=== PATIENT | female | born 1970 ===

== ENCOUNTER 2016-08-06 00:06 | Emergency (ER) | payer MEDICAID ==
[2016-08-06] MEDS ORDERED: Iohexol 240 (50 ml) PO ONE (00:55)
[2016-08-06] MEDS ORDERED: Iohexol 240 (50 ml) ONE (01:08)
--- NOTE | 2016-08-06 01:13 | ED PDOC ---
HPI: Abdomen Time Seen by Provider: 08/06/16 00:15 Chief Complaint (Nursing): Abdominal Pain Chief Complaint (Provider): abd pain History Per: Patient History/Exam Limitations: no limitations Onset/Duration Of Symptoms: Hrs Outside of [place] travel?: No Current Symptoms Are (Timing): Still Present Additional Complaint(s): 46yo female with PMHx including diabetes, colon resection with ileostomy and reversal, SBO presents to the ED with c/o abdominal pain since 1800 last night with vomiting x1. Denies diarrhea, fever. Patient reports she was able to pas gas, but has not had a BM. Of note, patient had a small bowel obstruction 2 months ago and was seen by Dr. Calderon at that time with conservative management. Past Medical History Reviewed: Historical Data, Nursing Documentation, Vital Signs Vital Signs: Last Vital Signs Temp 97.9 F 08/06/16 04:38 Pulse 75 08/06/16 04:38 Resp 16 08/06/16 04:38 BP 125/80 08/06/16 04:38 Pulse Ox 100 08/06/16 06:33 - Medical History PMH: Diabetes, Hypercholesterolemia, Kidney Stones Denies: Alzheimer's Disease, Chronic Kidney Disease - Surgical History Surgical History: Cholecystectomy Other surgeries: breast, for kidney stone, ileostomy and reversal, ovarian - Family History Family History: States: No Known Family Hx - Social History Current smoker - smoking cessation education provided: No Alcohol: None Drugs: Denies - Home Medications Home Medications: Ambulatory Orders Medication Instructions Recorded Simvastatin 10 mg PO DAILY 06/08/16 metFORMIN [glucOPHAGE] 500 mg PO DAILY 06/08/16 Ciprofloxacin [Cipro] 500 mg PO BID #8 tab 06/10/16 - Allergies Allergies/Adverse Reactions: Allergies Allergy/AdvReac Type Severity Reaction Status Date / Time No Known Allergies Allergy Verified 06/07/16 22:42 Review of Systems ROS Statement: Except As Marked, All Systems Reviewed And Found Negative Constitutional: Negative for: Fever Gastrointestinal: Positive for: Vomiting, Abdominal Pain. Negative for: Diarrhea Physical Exam - Reviewed Nursing Documentation Reviewed: Yes Vital Signs Reviewed: Yes - Physical Exam Appears: Positive for: Well, No Acute Distress Head Exam: Positive for: ATRAUMATIC, NORMAL INSPECTION, NORMOCEPHALIC Skin: Positive for: Normal Color, Warm, Dry Eye Exam: Positive for: Normal appearance, EOMI, PERRL ENT: Positive for: Normal ENT Inspection Neck: Positive for: Normal, Painless ROM, Supple Cardiovascular/Chest: Positive for: Regular Rate, Rhythm. Negative for: Murmur , Tachycardia Respiratory: Positive for: Normal Breath Sounds. Negative for: Wheezing, Respiratory Distress Gastrointestinal/Abdominal: Positive for: Bowel Sounds, Soft, Tenderness ( diffuse ) Back: Positive for: Normal Inspection. Negative for: L CVA Tenderness, R CVA Tenderness Extremity: Positive for: Normal ROM. Negative for: Deformity, Swelling Neurologic/Psych: Positive for: Alert, Oriented. Negative for: Motor/Sensory Deficits - Laboratory Results Result Diagrams: 08/06/16 01:05 08/06/16 01:05 - ECG O2 Sat by Pulse Oximetry: 100 Pulse Ox Interpretation: Normal (RA) Medical Decision Making Medical Decision Makin: Impression: abdominal pain, r/o SBO Plan: CT A/P Labs IVF, Zofran 4mg IV ED obs reassess 0349: CT A/P impression: Evidence of prior bowel surgery. Constipation. Distended small bowel loops in the upper pelvis with prominent folds suggestive of focal enteritis. No obstruction identified. Stable appearing mild hydronephrosis. 0430: Patient tolerating PO and stable for d/c. pt feels better. pt instructed to drink plenty of fluids Instructed to f/u w/ her PCP in 1-2 days and return to ED with any worsening or concerning symptoms. Scribe Attestation: Documented by Tammy Mehta acting as a scribe for Calvin Reynolds MD. Provider Scribe Attestation: All medical record entries made by the Scribe were at my direction and personally dictated by me. I have reviewed the chart and agree that the record accurately reflects my personal performance of the history, physical exam, medical decision making, and the department course for this patient. I have also personally directed, reviewed, and agree with the discharge instructions and disposition. ED OBSERVATION Date of observation admission: 08/06/16 Time of observation admission: 01:18 - Observation admission statement Patient is being placed in observation because:: abdominal pain - Goals of Observation Goals of observation are:: pending CT A/P Disposition - Clinical Impression Clinical Impression: Enteritis - Patient ED Disposition Is Patient to be Admitted: No Counseled Patient/Family Regarding: Studies Performed, Diagnosis, Need For Followup - Disposition Disposition: Routine/Home Disposition Time: 04:30 Condition: IMPROVED Additional Instructions: follow up with your primary doctor in 1-2 days. return to the ED with any worsening or concerning symptoms. Instructions: Enteritis (ED) Forms: [facility] ED School/Work Excuse
[2016-08-06 01:14] LABS: BASO # 0.1 K/uL (0.0-0.2); BASO % 0.7 % (0.0-2.0); EOS # 0.1 K/uL (0.0-0.7); EOS % 1.3 % (0.0-4.0); HEMATOCRIT 38.6 % (34.0-47.0); LYMPH % 11.7 % (20.0-40.0); MEAN CELL VOLUME 83.4 fl (81.0-99.0); MEAN CORPUSCULAR HEMOGLOBIN 27.5 pg (27.0-31.0); MEAN PLATELET VOLUME 7.9 fl (7.2-11.7); MONO # 0.5 K/uL (0.0-0.8); MONO % 5.6 % (0.0-10.0); NEUT # 7.2 K/uL (1.8-7.0); NEUT % 80.7 % (50.0-75.0); RED CELL DISTRIBUTION WIDTH 13.5 % (11.5-14.5)
[2016-08-06] MEDS ORDERED: Sodium Chloride 0.9% 1,000 ML IV STA (01:18)
[2016-08-06 01:20] LABS: CHLORIDE 105 mmol/L (98-107); POTASSIUM 4.3 MMOL/L (3.6-5.0); SODIUM 144 mmol/l (132-148)
[2016-08-06 01:22] LABS: GFR AFRICAN-AMERICAN > 60
[2016-08-06 01:23] LABS: ALB/GLOB RATIO 1.2 (1.0-2.1); ALKALINE PHOSPHATASE 108 U/L (38-126); ALT/SGPT 35 U/L (9-52); AST/SGOT 25 U/L (14-36); BILIRUBIN,TOTAL 0.8 mg/dl (0.2-1.3); BLOOD UREA NITROGEN 13 mg/dl (7-17); CALCIUM 9.6 mg/dL (8.4-10.2); CARBON DIOXIDE 25 mmol/L (22-30); GLUCOSE,RANDOM 143 mg/dL (65-105); LIPASE 84 U/L (23-300); TOTAL PROTEIN 8.1 G/DL (6.3-8.2)
[2016-08-06] MEDS ORDERED: Iohexol 300 100 ML IJ ONE (02:58)
[2016-08-06] MEDS ORDERED: Sodium Chloride 0.9% 50 ML IV ONE (02:58)
--- NOTE | 2016-08-06 03:49 | CT ---
EXAM: CT Abdomen and Pelvis With Intravenous Contrast CLINICAL HISTORY: 46 years old, female; Pain; Abdominal pain; Generalized; Prior surgery; Surgery date: 6+ months; Surgery type: Gall bladder removed. Hysterectomy. Colon resection with ileostomy and reversal. Sb obstruction 2 months ago; Additional info: Abd pain vomiting rule out obstruction TECHNIQUE: Axial computed tomography images of the abdomen and pelvis with intravenous contrast. This CT exam was performed using one or more of the following dose reduction techniques: automated exposure control, adjustment of the mA and/or kV according to patient size, and/or use of iterative reconstruction technique. Coronal and sagittal reformatted images were created and reviewed. CONTRAST: 95 mL of administered intravenously. EXAM DATE/TIME: 08/06/2016 12:55 AM COMPARISON: CT - ABD PELVIS PO IV CONTRAST 06/08/2016 2:33:31 AM FINDINGS: Cholecystectomy clips are present. The liver is normal. The spleen is normal. The pancreas is normal. Stable nonobstructing right renal calcifications. There is slight fullness of the renal collecting systems bilaterally slightly more prominent on the right similar to prior. No obstructing calculi are identified. No perinephric stranding to suggest acute infectious/inflammatory process. Small bowel herniates between the abdominis rectus muscles at the umbilicus similar to prior. There is slight caliber change in this region however not significant enough to be supportive of obstruction. Additionally, contrast progresses through to the colon. There is fold prominence of several small bowel loops of small bowel loops in the upper pelvis suggestive of focal enteritis. Surgical sutures at the rectosigmoid junction. Small amount of stranding surrounding the surgicalsite felt to likely be postoperative as there is no significant wall thickening. The colon is distended with stool consistent with constipation. A normal appendix is identified ser 3 images 97 - 110. IMPRESSION: Evidence of prior bowel surgery. Constipation. Distended small bowel loops in the upper pelvis with prominent folds suggestive of focal enteritis. No obstruction identified. Stable appearing mild hydronephrosis.
[2016-08-06 04:38] VITALS: BP 125/80; PULSE 75; RESP 16; TEMP 97.9
[2016-08-06 06:33] VITALS: O2SAT 100
== END 2016-08-06 04:39 | disposition home or self-care (01) ==
LOC: H.ER 00:06
DX: K52.9 Noninfective gastroenteritis and colitis, unspecified (principal); R11.10 Vomiting, unspecified; E11.9 Type 2 diabetes mellitus without complications; E78.00 Pure hypercholesterolemia, unspecified; Z79.84 Long term (current) use of oral hypoglycemic drugs; Z90.49 Acquired absence of other specified parts of digestive tract; Z90.710 Acquired absence of both cervix and uterus; K59.00 Constipation, unspecified

== ENCOUNTER 2016-09-02 03:44 | Emergency (ER) | payer MEDICAID ==
[2016-09-02 03:49] VITALS: BP 142/80; PULSE 74; RESP 16; TEMP 98.3; O2SAT 98
[2016-09-02] MEDS ORDERED: Sodium Chloride 0.9% 1,000 ML IV STA (03:59)
--- NOTE | 2016-09-02 04:28 | ED PDOC ---
HPI: Abdomen Time Seen by Provider: 09/02/16 03:50 Chief Complaint (Nursing): Abdominal Pain Chief Complaint (Provider): Abdominal pain History Per: Patient History/Exam Limitations: no limitations Onset/Duration Of Symptoms: Hrs (6) Outside of [place] travel?: No Current Symptoms Are (Timing): Still Present Severity: Moderate Location Of Pain/Discomfort: Diffuse Quality Of Discomfort: "Pain" Additional History Per: Patient Additional Complaint(s): The pt is a 46yo female, PMHx of colon mass with substotal colectomy, uterine mass resulting in hysterectomy, presents to ED for evaluation of abdominal pain. She reports she has had 2 episodes of adhesion related small bowel obstructions since her procedures. She reports similar complaints today with acute onset of nausea and vomiting x4 today, states vomits was non-bloody and non-bilious. She denies any chest pain, SOB, fever or cough. Offers no additional medical complaints. Past Medical History Reviewed: Historical Data, Nursing Documentation, Vital Signs Vital Signs: Last Vital Signs Temp 98.3 F 09/02/16 03:46 Pulse 74 09/02/16 03:46 Resp 16 09/02/16 03:46 BP 142/80 09/02/16 03:46 Pulse Ox 98 09/02/16 09:22 - Medical History PMH: Diabetes, Hypercholesterolemia, Kidney Stones Denies: Alzheimer's Disease, Chronic Kidney Disease - Surgical History Surgical History: Cholecystectomy Other surgeries: Hysterectomy, subtotal colectomy - Family History Family History: States: Unknown Family Hx - Social History Current smoker - smoking cessation education provided: No Alcohol: None Drugs: Denies - Home Medications Home Medications: Ambulatory Orders Medication Instructions Recorded Simvastatin 10 mg PO DAILY 06/08/16 metFORMIN [glucOPHAGE] 500 mg PO DAILY 06/08/16 Ciprofloxacin [Cipro] 500 mg PO BID #8 tab 06/10/16 - Allergies Allergies/Adverse Reactions: Allergies Allergy/AdvReac Type Severity Reaction Status Date / Time No Known Allergies Allergy Verified 09/02/16 03:46 Review of Systems ROS Statement: Except As Marked, All Systems Reviewed And Found Negative Constitutional: Negative for: Fever Cardiovascular: Negative for: Chest Pain Respiratory: Negative for: Cough, Shortness of Breath Gastrointestinal: Positive for: Nausea, Vomiting, Abdominal Pain Physical Exam - Reviewed Nursing Documentation Reviewed: Yes Vital Signs Reviewed: Yes - Physical Exam Appears: Positive for: Well, Non-toxic, Uncomfortable Head Exam: Positive for: ATRAUMATIC, NORMAL INSPECTION, NORMOCEPHALIC Skin: Positive for: Normal Color, Warm (tacky mucuous membranes) Eye Exam: Positive for: Normal appearance Neck: Positive for: Normal Cardiovascular/Chest: Positive for: Regular Rate, Rhythm Respiratory: Positive for: Normal Breath Sounds. Negative for: Respiratory Distress Gastrointestinal/Abdominal: Positive for: Soft, Tenderness (diffuse abdominal tenderness) Neurologic/Psych: Positive for: Alert, Oriented - Laboratory Results Result Diagrams: 09/02/16 04:15 09/02/16 04:15 - ECG O2 Sat by Pulse Oximetry: 98 (RA) Pulse Ox Interpretation: Normal Medical Decision Making Medical Decision Making: Time: 0405 Impression: 46yo female w/ abdominal pain, nausea, vomiting in setting of recurrent SBO Plan: * Labs * CT AP * Morphine * Zofran * IV Fluids * reassess Time: 0700 Pt to be signed out to Dr. Demarco pending CT results and ED disposition. Scribe Attestation: Documented by Lali Kay acting as a scribe for Billy Stoddard MD. Provider Attestation: All medical record entries made by the Scribe were at my direction and personally dictated by me. I have reviewed the chart and agree that the record accurately reflects my personal performance of the history, physical exam, medical decision making, and the department course for this patient. I have also personally directed, reviewed, and agree with the discharge instructions and disposition. Disposition - Clinical Impression Clinical Impression: Abdominal pain, Small intestine disorder - Patient ED Disposition Is Patient to be Admitted: Transfer of Care - Disposition Disposition: Transfer of Care Disposition Time: 07:00 Condition: IMPROVED Instructions: Bowel Obstruction (ED) Forms: [facility] ED School/Work Excuse Print Language: CONGOLESE Patient Signed Over To: Angelica Demarco (pending ct ap results)
[2016-09-02 04:36] LABS: BASO % 0.2 % (0.0-2.0); EOS % 0.3 % (0.0-4.0); HEMATOCRIT 39.5 % (34.0-47.0); LYMPH # 0.9 K/uL (1.0-4.3); LYMPH % 10.8 % (20.0-40.0); MEAN CELL VOLUME 82.4 fl (81.0-99.0); MEAN CORPUSCULAR HEMOGLOBIN 27.8 pg (27.0-31.0); MEAN CORPUSCULAR HGB CONC 33.7 g/dL (33.0-37.0); MEAN PLATELET VOLUME 8.1 fl (7.2-11.7); MONO # 0.3 K/uL (0.0-0.8); MONO % 3.4 % (0.0-10.0); NEUT # 6.9 K/uL (1.8-7.0); NEUT % 85.3 % (50.0-75.0); RED CELL DISTRIBUTION WIDTH 13.6 % (11.5-14.5); WHITE BLOOD COUNT 8.1 K/uL (4.8-10.8)
[2016-09-02 04:48] LABS: ALB/GLOB RATIO 1.3 (1.0-2.1); ALKALINE PHOSPHATASE 117 U/L (38-126); ALT/SGPT 25 U/L (9-52); AST/SGOT 24 U/L (14-36); BILIRUBIN,TOTAL 0.9 mg/dl (0.2-1.3); BLOOD UREA NITROGEN 15 mg/dl (7-17); CALCIUM 9.8 mg/dL (8.4-10.2); CARBON DIOXIDE 26 mmol/L (22-30); CHLORIDE 104 mmol/L (98-107); GFR AFRICAN-AMERICAN > 60; GLUCOSE,RANDOM 181 mg/dL (65-105); LIPASE 104 U/L (23-300); POTASSIUM 4.6 MMOL/L (3.6-5.0); SODIUM 143 mmol/l (132-148); TOTAL PROTEIN 9.1 G/DL (6.3-8.2)
[2016-09-02 04:59] LABS: PARTIAL THROMBOPLASTIN TIME 22.2 SECONDS (23.3-32.5)
[2016-09-02 05:51] LABS: RBC URINE 5 /hpf (0-3); URINE BILIRUBIN NEGATIVE (NEGATIVE); URINE BLOOD NEGATIVE (NEGATIVE); URINE COLOR YELLOW (YELLOW); URINE GLUCOSE (UA) NEG (Normal); URINE KETONE NEGATIVE (NEGATIVE); URINE LEUKOCYTE ESTERASE TRACE Leu/uL (Negative); URINE PROTEIN NEGATIVE (NEGATIVE); URINE UROBILINOGEN 0.2-1.0 mg/dL (0.2-1.0); WBC URINE 5 /hpf (0-5)
[2016-09-02] MEDS ORDERED: Iohexol 300 100 ML IJ ONE (05:51)
[2016-09-02] MEDS ORDERED: Sodium Chloride 0.9% 50 ML IV ONE (05:52)
[2016-09-02 06:04] LABS: URINE BACTERIA SMALL (<OCC)
--- NOTE | 2016-09-02 07:08 | ED PDOC ---
- Laboratory Results Result Diagrams: 09/02/16 04:15 09/02/16 04:15 - ECG O2 Sat by Pulse Oximetry: 98 (RA) Medical Decision Making Medical Decision Making: received patient form Dr. Stoddard. Patient pending CT abd pelvis for evaluation of abd pain. h/o resection and recurrent SBO. per report feeling better and passing gas after some meds in the ED 9.00 CT reviewed. Patient examined. She feels better now. Passed gas below twice since arrival. CT - possible early SBO. Patient prefers to go home and return if symptoms worsen. Disposition Doctor Will See Patient In The: Office Counseled Patient/Family Regarding: Diagnosis, Need For Followup - Clinical Impression Clinical Impression: Abdominal pain, Small intestine disorder - POA Present On Arrival: None - Disposition Disposition: Routine/Home Disposition Time: 09:00 Condition: IMPROVED Instructions: Bowel Obstruction (ED) Print Language: SERBIAN
--- NOTE | 2016-09-02 11:23 | CT ---
PROCEDURE: CT Abdomen and Pelvis with contrast HISTORY: possible SBO COMPARISON: CT abdomen and pelvis with contrast performed 08/06/16 TECHNIQUE: Radiation dose: Total exam DLP = 908.80 mGy-cm. This CT exam was performed using one or more of the following dose reduction techniques: Automated exposure control, adjustment of the mA and/or kV according to patient size, and/or use of iterative reconstruction technique. FINDINGS: LOWER THORAX: No visible consolidation, pleural effusion, or pneumothorax. Small hiatal hernia. LIVER: Hypoattenuation of the liver compatible with hepatic steatosis. GALLBLADDER AND BILE DUCTS: Cholecystectomy. PANCREAS: Unremarkable. SPLEEN: 5 mm probable splenule. Otherwise unremarkable. ADRENALS: Unremarkable. KIDNEYS AND URETERS: The kidneys enhance symmetrically. Nonobstructing calculus, right lower pole. Mild right-sided hydronephrosis re-identified, stable to slightly decreased in extent. The left kidney without hydronephrosis or obstructing calculus. VASCULATURE: No aortic aneurysm. BOWEL: Stomach is nondistended. Lack of oral contrast limits evaluation for bowel pathology. Prior colon resections. Moderate constipation. Bowel loops entering in abdominal midline hernia. Evidence of developing small bowel air-fluid levels and appearance which suggests obstruction. APPENDIX: The appendix appears within normal limits of caliber. No secondary signs of acute appendicitis. PERITONEUM: No significant free fluid. No definite free air. LYMPH NODES: No bulky adenopathy. BLADDER: Unremarkable. REPRODUCTIVE: The uterus is absent compatible with hysterectomy. BONES: Degenerative changes of the spine. Partially fused L3-L4 vertebral bodies. No acute displaced fracture identified. OTHER FINDINGS: None. IMPRESSION: Evidence of developing small bowel air-fluid levels and appearance which suggests obstruction. Correlate clinically. Prior colon resections. Moderate constipation. Right-sided hydronephrosis stable to minimally decreased. Cholecystectomy. Hysterectomy. Additional findings as above. Preliminary impression was provided by virtual radiologic.
--- NOTE | 2016-09-03 01:20 | CARD ---
APPROVED REPORT EKG Measurement Heart [id number] <Conclusion> Normal sinus rhythm Nonspecific T wave abnormality Abnormal ECG
== END 2016-09-02 09:50 | disposition home or self-care (01) ==
LOC: H.ER 03:44
DX: K56.60 Unspecified intestinal obstruction (principal); R11.2 Nausea with vomiting, unspecified; E11.9 Type 2 diabetes mellitus without complications; E78.00 Pure hypercholesterolemia, unspecified; K59.00 Constipation, unspecified; Z79.84 Long term (current) use of oral hypoglycemic drugs; Z90.49 Acquired absence of other specified parts of digestive tract; Z90.710 Acquired absence of both cervix and uterus

== ENCOUNTER 2016-11-24 00:02 | Inpatient (IN) | payer MEDICAID ==
[2016-11-24] MEDS ORDERED: Sodium Chloride 0.9% 1,000 ML IV STA (00:41)
[2016-11-24] MEDS ORDERED: DiphenhydrAMINE 50 mg/ml Inj IV STA (00:50)
[2016-11-24] MEDS ORDERED: Promethazine 25 MG in Sodium Chloride 0.9% 50 ML IVPB STA (00:53)
[2016-11-24 00:56] LABS: BASO % 0.2 % (0.0-2.0); EOS % 0.1 % (0.0-4.0); HEMOGLOBIN 12.2 g/dL (12.0-16.0); LYMPH # 1.3 K/uL (1.0-4.3); LYMPH % 11.8 % (20.0-40.0); MEAN CELL VOLUME 83.1 fl (81.0-99.0); MEAN CORPUSCULAR HEMOGLOBIN 27.2 pg (27.0-31.0); MEAN CORPUSCULAR HGB CONC 32.8 g/dL (33.0-37.0); MEAN PLATELET VOLUME 7.8 fl (7.2-11.7); MONO # 0.2 K/uL (0.0-0.8); MONO % 2.1 % (0.0-10.0); NEUT # 9.5 K/uL (1.8-7.0); NEUT % 85.8 % (50.0-75.0); RBC 4.5 Mil/uL (3.80-5.20); RED CELL DISTRIBUTION WIDTH 13.5 % (11.5-14.5); WHITE BLOOD COUNT 11.1 K/uL (4.8-10.8)
[2016-11-24] MEDS ORDERED: DiphenhydrAMINE 50 mg/ml Inj ONE (00:57)
[2016-11-24 01:07] LABS: ALB/GLOB RATIO 1.3 (1.0-2.1); ALBUMIN 4.7 g/dL (3.5-5.0); ALT/SGPT 30 U/L (9-52); AST/SGOT 31 U/L (14-36); BLOOD UREA NITROGEN 14 mg/dl (7-17); CALCIUM 9.9 mg/dL (8.4-10.2); GFR AFRICAN-AMERICAN > 60; GFR NON-AFRICAN AMERICAN > 60; LIPASE 87 U/L (23-300)
[2016-11-24] MEDS ORDERED: Sodium Chloride 0.9% 50 ML IV ONE (01:33)
[2016-11-24] MEDS ORDERED: Iohexol 300 100 ML IJ ONE (01:33)
--- NOTE | 2016-11-24 02:04 | ED PDOC ---
HPI: Abdomen Time Seen by Provider: 11/24/16 00:16 Chief Complaint (Nursing): Abdominal Pain Chief Complaint (Provider): Abdominal Pain History Per: Patient History/Exam Limitations: no limitations Onset/Duration Of Symptoms: Hrs (x4) Current Symptoms Are (Timing): Still Present Additional Complaint(s): Tara Dubon is a 46 year old female with previous medical history of diabetes , kidney stones, uterine mass and small bowel obstruction who presents to the emergency department with a complaint of abdominal pain associated with nausea and nonbloody, nonbilious vomiting ongoing for 4 hours. Denied any chest pain, cough, or shortness of breath. Of note, patient has surgical history of a subtotal colectomy and hysterectomy which has exasperated her SBO pain. PMD: none provided Past Medical History Reviewed: Historical Data, Nursing Documentation, Vital Signs Vital Signs: Last Vital Signs Temp 98.6 F 11/24/16 00:30 Pulse Resp 18 11/24/16 00:30 BP 146/84 11/24/16 00:30 Pulse Ox 99 11/24/16 04:35 - Medical History PMH: Diabetes, Hypercholesterolemia, Kidney Stones Denies: Alzheimer's Disease, Chronic Kidney Disease - Surgical History Surgical History: Cholecystectomy - Family History Family History: States: Unknown Family Hx - Social History Current smoker - smoking cessation education provided: No Alcohol: None Drugs: Denies - Home Medications Home Medications: Ambulatory Orders Medication Instructions Recorded No Known Home Med 11/24/16 - Allergies Allergies/Adverse Reactions: Allergies Allergy/AdvReac Type Severity Reaction Status Date / Time No Known Allergies Allergy Verified 09/02/16 03:46 Review of Systems ROS Statement: Except As Marked, All Systems Reviewed And Found Negative Cardiovascular: Negative for: Chest Pain Respiratory: Negative for: Cough, Shortness of Breath Gastrointestinal: Positive for: Nausea, Vomiting, Abdominal Pain Physical Exam - Reviewed Nursing Documentation Reviewed: Yes Vital Signs Reviewed: Yes - Physical Exam Appears: Positive for: Well, Non-toxic, Uncomfortable Head Exam: Positive for: ATRAUMATIC, NORMAL INSPECTION, NORMOCEPHALIC Skin: Positive for: Normal Color Cardiovascular/Chest: Positive for: Regular Rate, Rhythm Respiratory: Positive for: Normal Breath Sounds Gastrointestinal/Abdominal: Positive for: Tenderness (diffused abdomen). Negative for: Normal Exam Extremity: Positive for: Normal ROM Neurologic/Psych: Positive for: Alert, receiving barn custodian II-XII, Oriented - Laboratory Results Result Diagrams: 11/24/16 00:54 11/24/16 00:54 - ECG O2 Sat by Pulse Oximetry: 99 (RA) Pulse Ox Interpretation: Normal Medical Decision Making Medical Decision Making: Initial Impression: Abdominal pain; Recurrent small bowel obstruction Initial Plan: * CT ABD/Pelvis with IV contrast * Urine dipstick * Urine * Benadryl 25mg IV * Pepcid 20mg IV * NS 1,000ml IV per 1,000mls/hr * Zofran 4mg IV * Phenergan 50ml IVPB * Urinialysis * Re-evaluation Time: 0400 --CT ABD/Pelvis FINDINGS: LOWER THORAX: No infiltrate seen in the lung bases. ABDOMEN: LIVER: Fatty infiltration of the liver. GALLBLADDER AND BILE DUCTS: Cholecystectomy clips. PANCREAS: No CT evidence of acute pancreatitis. SPLEEN: No acute abnormality of the spleen identified. ADRENALS: No acute abnormality of the adrenal glands identified. KIDNEYS AND URETERS: Nonobstructing stones in the lower pole of the right kidney. No evidence of hydroureteronephrosis. STOMACH AND BOWEL: Findings highly suspicious for a small bowel obstruction. There are multiple dilated ileal small bowel loops seen, and there are decompressed distal ileal small bowel loops visualized. Transition point is seen, within a small bowel loop in the right lower abdomen, images 97-112 of series 3, where there is a change in caliber of the small bowel. The transition point is located near a surgical anastomosis/surgical suture line in the small bowel. No definite mass is identified at the transition point. There is no evidence of focal enteritis of the transition point. An adhesive small bowel obstruction could have this appearance. There is a small amount of fluid in the small bowel mesentery, abutting the dilated small bowel loops. Multiple ventral hernias are seen, containing small bowel loops. These hernias have wide necks, and there does not appear to be any associated bowel obstruction. Surgical suture line is noted in the rectum. Otherwise, no significant abnormality of the bowel is identified. No evidence of large bowel obstruction. No acute abnormality of the stomach or duodenum identified. APPENDIX: Appendix is seen, and is within normal limits in appearance. PELVIS: BLADDER: No acute abnormality of the bladder identified. REPRODUCTIVE: Uterus is surgically absent. No evidence of large adnexal masses. SUBPERITONEAL SPACE: Irregular soft tissue is seen in the presacral region, most likely representing post radiation/post operative changes. ABDOMEN and PELVIS: INTRAPERITONEAL SPACE: No evidence of free intraperitoneal air or fluid. BONES/JOINTS: No acute fractures or other acute bony abnormality noted. SOFT TISSUES: No acute abnormality of the visualized soft tissues is seen. VASCULATURE: No evidence of abdominal aortic aneurysm. No evidence of periaortic hemorrhage. LYMPH NODES: No evidence of diffuse lymphadenopathy. IMPRESSION: - Findings highly suspicious for a small bowel obstruction. Please see above for a full description. - Irregular soft tissue in the presacral region, most likely representing post radiation/postoperative changes, however, recommend comparison with prior exams when available to document stability. - See above for remaining findings. Time: 426 --Consulted with Dr. Perez who accepted patient and advised her to be admitted under hospital care for diagnosis of SBO. Time: 429 --Discussed case with Dr. Grace (hospitalist). Time: 444 --Discussed case with Dr. Cheema (resident bevel face stoner and polisher). Scribe Attestation: Documented by Jessica Wisdom, acting as a scribe for Billy Stoddard MD. Provider Scribe Attestation: All medical record entries made by the Scribe were at my direction and personally dictated by me. I have reviewed the chart and agree that the record accurately reflects my personal performance of the history, physical exam, medical decision making, and the department course for this patient. I have also personally directed, reviewed, and agree with the discharge instructions and disposition. Disposition - Disposition
[2016-11-24 02:38] LABS: SQUAMOUS EPITHIAL 1 /hpf (0-5); URINE BILIRUBIN NEGATIVE (NEGATIVE); URINE BLOOD NEGATIVE (NEGATIVE); URINE CLARITY CLOUDY (Clear); URINE COLOR YELLOW (YELLOW); URINE GLUCOSE (UA) NEG (Normal); URINE LEUKOCYTE ESTERASE SMALL Leu/uL (Negative); URINE NITRATE NEGATIVE (NEGATIVE); URINE PROTEIN NEGATIVE (NEGATIVE); URINE UROBILINOGEN 0.2-1.0 mg/dL (0.2-1.0)
--- NOTE | 2016-11-24 04:01 | CT ---
EXAM: CT Abdomen and Pelvis With Intravenous Contrast CLINICAL HISTORY: 46 years old, female; Pain; Abdominal pain; Generalized; Additional info: Abd pain; HX sbo TECHNIQUE: Axial computed tomography images of the abdomen and pelvis with intravenous contrast. All CT scans at this facility use one or more dose reduction techniques, viz.: automated exposure control; ma/kV adjustment per patient size (including targeted exams where dose is matched to indication; i.e. head); or iterative reconstruction technique. Coronal and sagittal reformatted images were created and reviewed. CONTRAST: 95 mL of [id number] administered intravenously. EXAM DATE/TIME: 11/24/2016 12:50 AM COMPARISON: No relevant prior studies available. FINDINGS: LOWER THORAX: No infiltrate seen in the lung bases. ABDOMEN: LIVER: Fatty infiltration of the liver. GALLBLADDER AND BILE DUCTS: Cholecystectomy clips. PANCREAS: No CT evidence of acute pancreatitis. SPLEEN: No acute abnormality of the spleen identified. ADRENALS: No acute abnormality of the adrenal glands identified. KIDNEYS AND URETERS: Nonobstructing stones in the lower pole of the right kidney. No evidence of hydroureteronephrosis. STOMACH AND BOWEL: Findings highly suspicious for a small bowel obstruction. There are multiple dilated ileal small bowel loops seen, and there are decompressed distal ileal small bowel loops visualized. Transition point is seen, within a small bowel loop in the right lower abdomen, images 97-112 of series 3, where there is a change in caliber of the small bowel. The transition point is located near a surgical anastomosis/surgical suture line in the small bowel. No definite mass is identified at the transition point. There is no evidence of focal enteritis of the transition point. An adhesive small bowel obstruction could have this appearance. There is a small amount of fluid in the small bowel mesentery, abutting the dilated small bowel loops. Multiple ventral hernias are seen, containing small bowel loops. These hernias have wide necks, and there does not appear to be any associated bowel obstruction. Surgical suture line is noted in the rectum. Otherwise, no significant abnormality of the bowel is identified. No evidence of large bowel obstruction. No acute abnormality of the stomach or duodenum identified. APPENDIX: Appendix is seen, and is within normal limits in appearance. PELVIS: BLADDER: No acute abnormality of the bladder identified. REPRODUCTIVE: Uterus is surgically absent. No evidence of large adnexal masses. SUBPERITONEAL SPACE: Irregular soft tissue is seen in the presacral region, most likely representing post radiation/post operative changes. ABDOMEN and PELVIS: INTRAPERITONEAL SPACE: No evidence of free intraperitoneal air or fluid. BONES/JOINTS: No acute fractures or other acute bony abnormality noted. SOFT TISSUES: No acute abnormality of the visualized soft tissues is seen. VASCULATURE: No evidence of abdominal aortic aneurysm. No evidence of periaortic hemorrhage. LYMPH NODES: No evidence of diffuse lymphadenopathy. IMPRESSION: - Findings highly suspicious for a small bowel obstruction. Please see above for a full description. - Irregular soft tissue in the presacral region, most likely representing post radiation/postoperative changes, however, recommend comparison with prior exams when available to document stability. - See above for remaining findings.
[2016-11-24] MEDS ORDERED: Morphine 4 MG/ML VIAL ONE (04:12)
--- NOTE | 2016-11-24 04:40 | CP.PCM.HP ---
History of Present Illness - History of Present Illness History of Present Illness: PCP: Not on staff Chief Complaint: abdominal Pain/Vomiting HPI: 46 years old female last admitted 06/08/16 and Discharged 06/10/16 with dx of SBO, has hx of Diabetes Mellitus;Colon resection with Ileostomy 05/2015, Then reversal of Ileostomy. She comes with 4 Hours of of severe generalized abdominal pain of intensity 9/10, associated with nausea and vomitus. no fever, chills, chest pain, SOB, Palpitations, diarrhea, constipation. She has had dysuria intermittently and refers abdominal pain of variable intensity after each few months, always with spontaneous relief. PMH: DM II; HLD;Right Nephrolithioasis; SBO treated conservatively PSH: Subtotal colectomy; uterine cyst removed,Ileostomy and reversal of the ileostomy 05/2015 and reversal 05/2016 hysterectomy; SH: No illegal Drug use; no Alcohol nor Cigarets, Live with the family FH: No Known family medical hx Allergies: NKDA - Present on Admission - Present on Admission Any Indicators Present on Admission: Yes History of DVT/PE: No History of Uncontrolled Diabetes: Yes Urinary Catheter: No Decubitus Ulcer Present: No Review of Systems - Constitutional Constitutional: absent: Anorexia, Chills, Fatigue, Fever, Headache - EENT Eyes: Requires Corrective Lenses. absent: Diplopia, Floaters, Photophobia Ears: absent: Decreased Hearing, Ear Discharge, Ear Pain, Tinnitus Nose/Mouth/Throat: absent: Epistaxis, Nasal Congestion, Nasal Discharge, Sinus Pain, Sinus Pressure - Cardiovascular Cardiovascular: absent: Chest Pain, Dyspnea, Edema - Respiratory Respiratory: absent: Cough, Dyspnea, Wheezing, Stridor, Chest Congestion - Gastrointestinal Gastrointestinal: Abdominal Pain, Diarrhea, Nausea, Vomiting. absent: Constipation - Genitourinary Genitourinary: Dysuria, Nocturia. absent: Flank Pain, Hematuria, Pyuria - Musculoskeletal Musculoskeletal: absent: Arthralgias, Back Pain, Joint Swelling, Muscle Weakness , Numbness - Integumentary Integumentary: absent: Pruritus, Rash, Skin Ulcer, Sores, Striae, Swelling - Neurological Neurological: absent: Confusion, Focal Weakness, Syncope, Vertigo - Psychiatric Psychiatric: absent: Anxiety, Depression, Panic Attacks - Endocrine Endocrine: absent: Palpitations, Polydipsia, Polyphagia, Polyuria - Hematologic/Lymphatic Hematologic: absent: Easy Bleeding, Easy Bruising Past Patient History - Past Medical History & Family History Past Medical History?: Yes - Past Social History Smoking Status: Never Smoked Chewing Tobacco Use: No Cigar Use: No Alcohol: None Drugs: Denies Home Situation {Lives}: With Family - CARDIAC Hx Hypercholesterolemia: Yes - PULMONARY Hx Respiratory Disorders: No - NEUROLOGICAL Hx Alzheimer's Disease: No - HEENT Hx HEENT Problems: No - RENAL Hx Chronic Kidney Disease: Yes Hx Kidney Stones: Yes - ENDOCRINE/METABOLIC Hx Diabetes Mellitus Type 2: Yes - HEMATOLOGICAL/ONCOLOGICAL Hx Blood Disorders: No - INTEGUMENTARY Hx Dermatological Problems: No - MUSCULOSKELETAL/RHEUMATOLOGICAL Hx Musculoskeletal Disorders: No - GASTROINTESTINAL Hx Bowel Surgery: Yes - GENITOURINARY/GYNECOLOGICAL Hx Genitourinary Disorders: No - PSYCHIATRIC Hx Psychophysiologic Disorder: No Hx Substance Use: No - SURGICAL HISTORY Hx Cholecystectomy: Yes Hx Hysterectomy: Yes Hx Valve Replacement: (Iliostony colon restriction with reversal,) - ANESTHESIA Hx Anesthesia: Yes Hx Anesthesia Reactions: No Meds Allergies/Adverse Reactions: Allergies Allergy/AdvReac Type Severity Reaction Status Date / Time No Known Allergies Allergy Verified 09/02/16 03:46 Physical Exam - Constitutional Appears: No Acute Distress - Head Exam Head Exam: ATRAUMATIC, NORMAL INSPECTION, NORMOCEPHALIC - Eye Exam Eye Exam: EOMI, Normal appearance, PERRL Pupil Exam: Irregular, Miosis, NORMAL ACCOMODATION - ENT Exam ENT Exam: Mucous Membranes Moist, Normal Exam, Normal External Ear Exam, Normal Oropharynx - Neck Exam Neck exam: Positive for: Full Rom, Normal Inspection. Negative for: Lymphadenopathy, Tenderness - Respiratory Exam Respiratory Exam: absent: Clear to Auscultation Bilateral, Prolonged Expiratory Phase, Rales, Rhonchi, Wheezes - Cardiovascular Exam Cardiovascular Exam: REGULAR RHYTHM, RRR, +S1, +S2. absent: Gallop, Rubs - GI/Abdominal Exam Additional comments: Obese, Soft, no guarding nor rebound tenderness. Results - Vital Signs Recent Vital Signs: Last Vital Signs Temp 98.6 F 11/24/16 00:30 Pulse Resp 18 11/24/16 00:30 BP 146/84 11/24/16 00:30 Pulse Ox 99 11/24/16 04:35 - Labs Result Diagrams: 11/24/16 00:54 11/24/16 00:54 Labs: Laboratory Results - last 24 hr 11/24/16 11/24/16 11/24/16 00:54 00:54 02:30 WBC 11.1 H RBC 4.50 Hgb 12.2 Hct 37.4 MCV 83.1 MCH 27.2 MCHC 32.8 L RDW 13.5 Plt Count 259 MPV 7.8 Neut % (Auto) 85.8 H Lymph % (Auto) 11.8 L [place] % (Auto) 2.1 Eos % (Auto) 0.1 Baso % (Auto) 0.2 Neut # 9.5 H Lymph # 1.3 [place] # 0.2 Eos # 0.0 Baso # 0.0 Sodium 138 Potassium 4.1 Chloride 101 Carbon Dioxide 22 Anion Gap 19 BUN 14 Creatinine 0.6 L Est GFR ( Amer) > 60 Est GFR (Non-Af Amer) > 60 Random Glucose 192 H Calcium 9.9 Total Bilirubin 1.0 AST 31 ALT 30 Alkaline Phosphatase 127 H Total Protein 8.2 Albumin 4.7 Globulin 3.5 Albumin/Globulin Ratio 1.3 Lipase 87 Urine Color Yellow Urine Clarity Cloudy Urine pH 8.0 Ur Specific [place] 1.011 Urine Protein Negative Urine Glucose (UA) Neg Urine Ketones Trace Urine Blood Negative Urine Nitrate Negative Urine Bilirubin Negative Urine Urobilinogen 0.2-1.0 Ur Leukocyte Esterase Small Urine RBC (Auto) 4 H Urine Microscopic WBC 9 H Ur Squamous Epith Cells 1 Urine Yeast (Budding) Mod H - Imaging and Cardiology Abdominal x-ray Status: Report reviewed by me Additional comment: FINDINGS: LOWER THORAX: No infiltrate seen in the lung bases. ABDOMEN: LIVER: Fatty infiltration of the liver. GALLBLADDER AND BILE DUCTS: Cholecystectomy clips. PANCREAS: No CT evidence of acute pancreatitis. SPLEEN: No acute abnormality of the spleen identified. ADRENALS: No acute abnormality of the adrenal glands identified. KIDNEYS AND URETERS: Nonobstructing stones in the lower pole of the right kidney. No evidence of hydroureteronephrosis. STOMACH AND BOWEL: Findings highly suspicious for a small bowel obstruction. There are multiple dilated ileal small bowel loops seen, and there are decompressed distal ileal small bowel loops visualized. Transition point is seen, within a small bowel loop in the right lower abdomen, images 97-112 of series 3, where there is a change in caliber of the small bowel. The transition point is located near a surgical anastomosis/surgical suture line in the small bowel. No definite mass is identified at the transition point. There is no evidence of focal enteritis of the transition point. An adhesive small bowel obstruction could have this appearance. There is a small amount of fluid in the small bowel mesentery, abutting the dilated small bowel loops. Multiple ventral hernias are seen, containing small bowel loops. These hernias have wide necks, and there does not appear to be any associated bowel obstruction. Surgical suture line is noted in the rectum. Otherwise, no significant abnormality of the bowel is identified. No evidence of large bowel obstruction. No acute abnormality of the stomach or duodenum identified. APPENDIX: Appendix is seen, and is within normal limits in appearance. PELVIS: BLADDER: No acute abnormality of the bladder identified. REPRODUCTIVE: Uterus is surgically absent. No evidence of large adnexal masses. SUBPERITONEAL SPACE: Irregular soft tissue is seen in the presacral region, most likely representing post radiation/post operative changes. ABDOMEN and PELVIS: INTRAPERITONEAL SPACE: No evidence of free intraperitoneal air or fluid. BONES/JOINTS: No acute fractures or other acute bony abnormality noted. SOFT TISSUES: No acute abnormality of the visualized soft tissues is seen. VASCULATURE: No evidence of abdominal aortic aneurysm. No evidence of periaortic hemorrhage. LYMPH NODES: No evidence of diffuse lymphadenopathy. IMPRESSION: - Findings highly suspicious for a small bowel obstruction. Please see above for a full description. - Irregular soft tissue in the presacral region, most likely representing post radiation/postoperative changes, however, recommend comparison with prior exams when available to document stability. - See above for remaining findings. Assessment & Plan - Assessment and Plan (Free Text) Plan: 46 years old female last admitted 06/08/16 and Discharged 06/10/16 with dx of SBO , has hx of Diabetes Mellitus;Colon resection with Ileostomy 05/2015, Then reversal of Ileostomy. She comes with 4 Hours of of severe generalized abdominal pain of intensity 9/10, associated with nausea and vomitus. no fever, chills, chest pain, SOB, Palpitations, diarrhea, constipation. She has had dysuria intermittently and refers abdominal pain of variable intensity after each few months, always with spontaneous relief. #. SBO - consult Dr davis Surgery - NPO - Zofran - Cefazolin #. Abdominal Pain - pain management with Morphine #. DM with Hyperglycemia - Regulin Insulin sliding scale according to Accuchecl #. Leukocytosis - follow WBC #.Funguria - Fluconazole 200mg IV daily #. Stress Ulcer prophylaxis eith Pepcid #. DVT Prophylaxis with SCD #. Code Status: Full - Date & Time Date: 11/24/16 Time: 04:40
[2016-11-24] MEDS: Lactated Ringer's 1,000 ML IV SCH ×3 (05:53→21:57)
[2016-11-24] MEDS ORDERED: ceFAZolin 1 GM in Sodium Chloride 0.9% 100 ML IVPB SCH (06:15)
--- NOTE | 2016-11-24 06:21 | CP.PCM.CON ---
<Magi Solorio - Last Filed: 11/24/16 11:28> History of Present Illness - History of Present Illness History of Present Illness: Surgery 46F w/ PMHx of DM, hysterectomy w/ colon resection & ileostomy, ileostomy reversal, presents w/ generalized abdominal pain. Patient reports pain began after having dinner yesterday night. Shes states this has occurred to her three previous times(August 2016, August 2015, and November 2015) after reversal of ileostomy , and these episodes were relieved with conservative management. The abdominal pain this time around did not resolve and it was severe, associated w/ n/V. Pt had multiple bilious vomiting. Last BM was yesterday. Currently denies fever, chills, CP, SOB, diarrhea, hematemesis, hematochezia, hematuria. Labs are unremarkable. CT shows multiple SB loops and ventral hernia with non obstructed SB. Surgery is consulted to evaluate for SBO. Pt had NGT in the ED . PMH: DM II PSH: Colon resection w/ ileostomy, reversal of the ileostomy 05/2015, hysterectomy, cholecystectomy SH: Denies smoking, Denies EtOH use, Denies illicit drug use Allergies: NKDA Review of Systems - Review of Systems Review of Systems: See HPI Past Patient History - Past Medical History & Family History Past Medical History?: Yes - Past Social History Smoking Status: Never Smoked Chewing Tobacco Use: No Cigar Use: No Alcohol: None Drugs: Denies Home Situation {Lives}: With Family - CARDIAC Hx Hypercholesterolemia: Yes - PULMONARY Hx Respiratory Disorders: No - NEUROLOGICAL Hx Alzheimer's Disease: No - HEENT Hx HEENT Problems: No - RENAL Hx Chronic Kidney Disease: Yes Hx Kidney Stones: Yes - ENDOCRINE/METABOLIC Hx Diabetes Mellitus Type 2: Yes - HEMATOLOGICAL/ONCOLOGICAL Hx Blood Disorders: No - INTEGUMENTARY Hx Dermatological Problems: No - MUSCULOSKELETAL/RHEUMATOLOGICAL Hx Musculoskeletal Disorders: No - GASTROINTESTINAL Hx Bowel Surgery: Yes - GENITOURINARY/GYNECOLOGICAL Hx Genitourinary Disorders: No - PSYCHIATRIC Hx Psychophysiologic Disorder: No Hx Substance Use: No - SURGICAL HISTORY Hx Cholecystectomy: Yes Hx Hysterectomy: Yes Hx Valve Replacement: (Iliostony colon restriction with reversal,) - ANESTHESIA Hx Anesthesia: Yes Hx Anesthesia Reactions: No Meds Allergies/Adverse Reactions: Allergies Allergy/AdvReac Type Severity Reaction Status Date / Time No Known Allergies Allergy Verified 09/02/16 03:46 - Medications Medications: Current Medications Famotidine (Pepcid) 20 mg IVP Q12 [facility] Lactated Ringer's (Lactated Ringer's) 1,000 mls @ 125 mls/hr IV .Q8H [facility] Last Admin: 11/24/16 05:53 Dose: 125 mls/hr Fluconazole (Diflucan Iv 200 Mg/100 Ml Ns) 100 mls @ 100 mls/hr IVPB DAILY [facility] Cefazolin Sodium 1 gm/ Sodium (Chloride) 100 mls @ 100 mls/hr IVPB Q8H [facility] Insulin Human Regular (Humulin R) 0 units SC Q6H ANDIE PRN Reason: Protocol Morphine Sulfate (Morphine) 2 mg IVP Q4 PRN PRN Reason: Pain, moderate (4-7) Morphine Sulfate (Morphine) 4 mg IVP Q4 PRN PRN Reason: Pain, severe (8-10) Ondansetron HCl (Zofran Inj) 4 mg IVP Q4 PRN PRN Reason: Nausea/Vomiting Physical Exam - Constitutional Appears: No Acute Distress - Head Exam Head Exam: ATRAUMATIC, NORMAL INSPECTION, NORMOCEPHALIC - Eye Exam Eye Exam: EOMI, Normal appearance, PERRL Pupil Exam: NORMAL ACCOMODATION, PERRL - ENT Exam ENT Exam: Mucous Membranes Moist, Normal Exam - Neck Exam Neck exam: Positive for: Normal Inspection - Respiratory Exam Respiratory Exam: Clear to Auscultation Bilateral, NORMAL BREATHING PATTERN - Cardiovascular Exam Cardiovascular Exam: REGULAR RHYTHM - GI/Abdominal Exam GI & Abdominal Exam: Normal Bowel Sounds, Soft, Tenderness. absent: Distended, Firm, Guarding Additional comments: Diffuse TTP - Extremities Exam Extremities exam: Positive for: full ROM, normal inspection - Back Exam Back exam: NORMAL INSPECTION - Neurological Exam Neurological exam: Alert, CN II-XII Intact, Normal Gait, Oriented x3, Reflexes Normal - Psychiatric Exam Psychiatric exam: Normal Affect, Normal Mood - Skin Skin Exam: Dry, Intact, Normal Color, Warm Results - Vital Signs Recent Vital Signs: Last Vital Signs Temp 98.3 F 11/24/16 05:24 Pulse 86 11/24/16 05:24 Resp 18 11/24/16 05:24 BP 132/83 11/24/16 05:24 Pulse Ox 97 11/24/16 05:24 - Labs Result Diagrams: 11/24/16 08:50 08/12/17 08:50 Labs: Laboratory Results - last 24 hr 11/24/16 02:30 Urine Color Yellow Urine Clarity Cloudy Urine pH 8.0 Ur Specific [place] 1.011 Urine Protein Negative Urine Glucose (UA) Neg Urine Ketones Trace Urine Blood Negative Urine Nitrate Negative Urine Bilirubin Negative Urine Urobilinogen 0.2-1.0 Ur Leukocyte Esterase Small Urine RBC (Auto) 4 H Urine Microscopic WBC 9 H Ur Squamous Epith Cells 1 Urine Yeast (Budding) Mod H Assessment & Plan - Assessment and Plan (Free Text) Assessment: 46 F wSBO w multiple surgeries Labs are unremarkable. CT shows multiple SB loops and ventral hernia with non obstructed SB NPO IVF NGT to suction Encourage ambulation Conservative management Medical management DW attending <Taras Perkins - Last Filed: 11/24/16 16:40> History of Present Illness - History of Present Illness History of Present Illness: Patient was seen and examined at the bedside. Agree with resident's note above. Meds - Medications Medications: Current Medications Enoxaparin Sodium (Lovenox) 40 mg SC DAILY ANDIE PRN Reason: Protocol Famotidine (Pepcid) 20 mg IVP Q12 [facility] Last Admin: 11/24/16 10:06 Dose: 20 mg Lactated Ringer's (Lactated Ringer's) 1,000 mls @ 125 mls/hr IV .Q8H [facility] Last Admin: 11/24/16 05:53 Dose: 125 mls/hr Fluconazole (Diflucan Iv 200 Mg/100 Ml Ns) 100 mls @ 100 mls/hr IVPB DAILY [facility] Last Admin: 11/24/16 11:11 Dose: 100 mls/hr Ciprofloxacin (Cipro 400mg/200ml Dsw) 400 mg in 200 mls @ 200 mls/hr IVPB Q12 [facility] Insulin Human Regular (Humulin R) 0 units SC Q6H ANDIE PRN Reason: Protocol Last Admin: 11/24/16 06:28 Dose: Not Given Morphine Sulfate (Morphine) 2 mg IVP Q4 PRN PRN Reason: Pain, moderate (4-7) Morphine Sulfate (Morphine) 4 mg IVP Q4 PRN PRN Reason: Pain, severe (8-10) Ondansetron HCl (Zofran Inj) 4 mg IVP Q4 PRN PRN Reason: Nausea/Vomiting Results - Vital Signs Recent Vital Signs: Last Vital Signs Temp 98.1 F 11/24/16 08:23 Pulse 67 11/24/16 08:23 Resp 20 11/24/16 08:23 BP 113/73 11/24/16 08:23 Pulse Ox 97 11/24/16 08:23 - Labs Result Diagrams: 11/24/16 08:50 11/24/16 08:50 Labs: Laboratory Results - last 24 hr 11/24/16 11/24/16 11/24/16 02:30 06:12 08:50 WBC 7.6 RBC 4.13 Hgb 11.6 L Hct 34.6 MCV 83.7 MCH 28.0 MCHC 33.4 RDW 13.7 Plt Count 247 MPV 8.3 Neut % (Auto) 79.6 H Lymph % (Auto) 15.2 L [place] % (Auto) 4.7 Eos % (Auto) 0.1 Baso % (Auto) 0.4 Neut # 6.1 Lymph # 1.2 [place] # 0.4 Eos # 0.0 Baso # 0.0 Sodium Potassium Chloride Carbon Dioxide Anion Gap BUN Creatinine Est GFR ( Amer) Est GFR (Non-Af Amer) POC Glucose (mg/dL) 149 H Random Glucose Calcium Urine Color Yellow Urine Clarity Cloudy Urine pH 8.0 Ur Specific [place] 1.011 Urine Protein Negative Urine Glucose (UA) Neg Urine Ketones Trace Urine Blood Negative Urine Nitrate Negative Urine Bilirubin Negative Urine Urobilinogen 0.2-1.0 Ur Leukocyte Esterase Small Urine RBC (Auto) 4 H Urine Microscopic WBC 9 H Ur Squamous Epith Cells 1 Urine Yeast (Budding) Mod H 11/24/16 08:50 WBC RBC Hgb Hct MCV MCH MCHC RDW Plt Count MPV Neut % (Auto) Lymph % (Auto) [place] % (Auto) Eos % (Auto) Baso % (Auto) Neut # Lymph # [place] # Eos # Baso # Sodium 142 Potassium 3.9 Chloride 105 Carbon Dioxide 25 Anion Gap 16 BUN 12 Creatinine 0.5 L Est GFR ( Amer) > 60 Est GFR (Non-Af Amer) > 60 POC Glucose (mg/dL) Random Glucose 126 H Calcium 9.0 Urine Color Urine Clarity Urine pH Ur Specific [place] Urine Protein Urine Glucose (UA) Urine Ketones Urine Blood Urine Nitrate Urine Bilirubin Urine Urobilinogen Ur Leukocyte Esterase Urine RBC (Auto) Urine Microscopic WBC Ur Squamous Epith Cells Urine Yeast (Budding) - Imaging and Cardiology CT scan - abdomen Status: Image reviewed by me, Report reviewed by me Assessment & Plan - Assessment and Plan (Free Text) Plan: - NPO - IV fluids - Pain control - NG tube to wall suction - repeat labs in am - Will follow
[2016-11-24] MEDS: Insulin Regular 100 units/ml SC SCH ×4 (06:28→23:00)
[2016-11-24 09:02] LABS: BASO % 0.4 % (0.0-2.0); EOS % 0.1 % (0.0-4.0); HEMOGLOBIN 11.6 g/dL (12.0-16.0); LYMPH # 1.2 K/uL (1.0-4.3); LYMPH % 15.2 % (20.0-40.0); MEAN CELL VOLUME 83.7 fl (81.0-99.0); MEAN CORPUSCULAR HGB CONC 33.4 g/dL (33.0-37.0); MEAN PLATELET VOLUME 8.3 fl (7.2-11.7); MONO # 0.4 K/uL (0.0-0.8); MONO % 4.7 % (0.0-10.0); NEUT # 6.1 K/uL (1.8-7.0); NEUT % 79.6 % (50.0-75.0); RBC 4.13 Mil/uL (3.80-5.20); RED CELL DISTRIBUTION WIDTH 13.7 % (11.5-14.5); WHITE BLOOD COUNT 7.6 K/uL (4.8-10.8)
[2016-11-24 09:10] LABS: BLOOD UREA NITROGEN 12 mg/dl (7-17); GFR AFRICAN-AMERICAN > 60; GFR NON-AFRICAN AMERICAN > 60
[2016-11-24] MEDS: Fluconazole IV 200mg/100 ml NS 100 ML IVPB SCH (11:11)
[2016-11-24] MEDS: Ciprofloxacin 400mg/200ml D5W 400 MG/200 ML BAG IVPB SCH (21:56)
[2016-11-25] MEDS: Lactated Ringer's 1,000 ML IV SCH ×3 (05:30→22:00)
[2016-11-25] MEDS: Insulin Regular 100 units/ml SC SCH ×3 (06:00→18:40)
[2016-11-25 08:12] LABS: BLOOD UREA NITROGEN 13 mg/dl (7-17); CALCIUM 8.9 mg/dL (8.4-10.2); GFR AFRICAN-AMERICAN > 60; GFR NON-AFRICAN AMERICAN > 60
[2016-11-25] MEDS: Fluconazole IV 200mg/100 ml NS 100 ML IVPB SCH (09:17)
[2016-11-25] MEDS: Ciprofloxacin 400mg/200ml D5W 400 MG/200 ML BAG IVPB SCH ×2 (09:36→20:39)
[2016-11-25] MEDS: Enoxaparin 40 mg Syringe SC SCH (09:39)
--- NOTE | 2016-11-25 09:52 | CP.PCM.PN ---
<Nazario Casiano - Last Filed: 11/25/16 12:31> Subjective - Date & Time of Evaluation Date of Evaluation: 11/25/16 Time of Evaluation: 06:30 - Subjective Subjective: General Surgery Progress Note for Dr. Perkins Patient seen and examined at bedside. No acute event overnight. Patient stated pain is slightly better today. NGT had 300cc of output overnight. Patient ambulating without difficulty. Patient reports flatus. Denies fever/chills, cp, sob, n/v/d. Objective - Vital Signs/Intake and Output Vital Signs (last 24 hours): Temp Pulse Resp BP Pulse Ox 98.8 F 64 20 117/75 99 11/25/16 08:24 11/25/16 08:24 11/25/16 08:24 11/25/16 08:24 11/25/16 08:24 Intake and Output: 11/25/16 11/25/16 06:59 18:59 Intake Total 1700 Output Total 150 Balance 1550 - Medications Medications: Current Medications Enoxaparin Sodium (Lovenox) 40 mg SC DAILY [facility] PRN Reason: Protocol Last Admin: 11/25/16 09:39 Dose: 40 mg Famotidine (Pepcid) 20 mg IVP Q12 [facility] Last Admin: 11/25/16 09:40 Dose: 20 mg Lactated Ringer's (Lactated Ringer's) 1,000 mls @ 125 mls/hr IV .Q8H [facility] Last Admin: 11/25/16 05:30 Dose: Not Given Fluconazole (Diflucan Iv 200 Mg/100 Ml Ns) 100 mls @ 100 mls/hr IVPB DAILY [facility] Last Admin: 11/25/16 09:17 Dose: 100 mls/hr Ciprofloxacin (Cipro 400mg/200ml Dsw) 400 mg in 200 mls @ 200 mls/hr IVPB Q12 [facility] Last Admin: 11/25/16 09:36 Dose: 200 mls/hr Insulin Human Regular (Humulin R) 0 units SC Q6H [facility] PRN Reason: Protocol Last Admin: 11/25/16 06:00 Dose: Not Given Morphine Sulfate (Morphine) 2 mg IVP Q4 PRN PRN Reason: Pain, moderate (4-7) Morphine Sulfate (Morphine) 4 mg IVP Q4 PRN PRN Reason: Pain, severe (8-10) Ondansetron HCl (Zofran Inj) 4 mg IVP Q4 PRN PRN Reason: Nausea/Vomiting - Labs Labs: 11/24/16 08:50 11/25/16 05:30 - Constitutional Appears: No Acute Distress - Head Exam Head Exam: ATRAUMATIC, NORMOCEPHALIC - Eye Exam Eye Exam: Normal appearance - ENT Exam ENT Exam: Mucous Membranes Moist - Neck Exam Neck Exam: Full ROM - Respiratory Exam Respiratory Exam: NORMAL BREATHING PATTERN - Cardiovascular Exam Cardiovascular Exam: REGULAR RHYTHM - GI/Abdominal Exam GI & Abdominal Exam: Soft, Tenderness (periumbilical). absent: Distended, Firm , Guarding, Rigid, Rebound - Extremities Exam Extremities Exam: absent: Calf Tenderness - Back Exam Back Exam: absent: CVA tenderness (L), CVA tenderness (R) - Neurological Exam Neurological Exam: Alert, Awake, Oriented x3 - Psychiatric Exam Psychiatric exam: Normal Affect, Normal Mood - Skin Skin Exam: Dry, Intact, Normal Color, Warm Assessment and Plan - Assessment and Plan (Free Text) Plan: 46 F with history of multiple surgeries presents with SBO CT Abd/pelvis:multiple SB loops and ventral hernia with non obstructed SB D/C NGT CLD IVF Encourage ambulation Conservative management Will DW Dr. Maddie Casiano PGY1 <Taras Perkins - Last Filed: 11/25/16 14:06> Subjective - Date & Time of Evaluation Time of Evaluation: 13:30 - Subjective Subjective: Patient was seen and examined at the bedside. Agree with resident's note above Objective - Vital Signs/Intake and Output Vital Signs (last 24 hours): Temp Pulse Resp BP Pulse Ox 98.8 F 64 20 117/75 99 11/25/16 08:24 11/25/16 08:24 11/25/16 08:24 11/25/16 08:24 11/25/16 08:24 Intake and Output: 11/25/16 11/25/16 06:59 18:59 Intake Total 1700 Output Total 150 Balance 1550 - Medications Medications: Current Medications Enoxaparin Sodium (Lovenox) 40 mg SC DAILY [facility] PRN Reason: Protocol Last Admin: 11/25/16 09:39 Dose: 40 mg Famotidine (Pepcid) 20 mg IVP Q12 [facility] Last Admin: 11/25/16 09:40 Dose: 20 mg Lactated Ringer's (Lactated Ringer's) 1,000 mls @ 125 mls/hr IV .Q8H [facility] Last Admin: 11/25/16 05:30 Dose: Not Given Fluconazole (Diflucan Iv 200 Mg/100 Ml Ns) 100 mls @ 100 mls/hr IVPB DAILY [facility] Last Admin: 11/25/16 09:17 Dose: 100 mls/hr Ciprofloxacin (Cipro 400mg/200ml Dsw) 400 mg in 200 mls @ 200 mls/hr IVPB Q12 [facility] Last Admin: 11/25/16 09:36 Dose: 200 mls/hr Insulin Human Regular (Humulin R) 0 units SC Q6H [facility] PRN Reason: Protocol Last Admin: 11/25/16 06:00 Dose: Not Given Morphine Sulfate (Morphine) 2 mg IVP Q4 PRN PRN Reason: Pain, moderate (4-7) Morphine Sulfate (Morphine) 4 mg IVP Q4 PRN PRN Reason: Pain, severe (8-10) Ondansetron HCl (Zofran Inj) 4 mg IVP Q4 PRN PRN Reason: Nausea/Vomiting - Labs Labs: 11/24/16 08:50 11/25/16 05:30
--- NOTE | 2016-11-25 13:18 | RAD ---
PROCEDURE: Radiographs of the chest and abdomen (obstructive series) HISTORY: To evaluate SBO COMPARISON: No prior. TECHNIQUE: AP radiograph of the chest, with upright and supine radiographs of the abdomen. FINDINGS: CHEST: Lungs: Clear. Cardiovascular: Normal size heart. No pulmonary vascular congestion. Pleura: No pleural fluid. No pneumothorax. Other findings: None. ABDOMEN AND PELVIS: Bowel: Unremarkable bowel gas pattern. No evidence of mechanical obstruction. Nasogastric tube coiled in the decompressed stomach. Free air: None. Bones: Unremarkable. Other findings: Contrast from prior CT scan identified in the kidneys. IMPRESSION: Unremarkable radiographs of chest and abdomen. No evidence of mechanical bowel obstruction. Nasogastric tube in satisfactory position.
--- NOTE | 2016-11-25 17:25 | CP.PCM.PN ---
Subjective - Date & Time of Evaluation Date of Evaluation: 11/25/16 Time of Evaluation: 10:30 - Subjective Subjective: Patient seen and examinded bedside. Feeling a little bettrer. passing flatus. with 300 ml output from NGT last 24 hour. Complains of abdominal tenderness Hemodynamically stable, afebrile Objective - Vital Signs/Intake and Output Vital Signs (last 24 hours): Temp Pulse Resp BP Pulse Ox 98.3 F 61 18 116/78 97 11/25/16 16:02 11/25/16 16:02 11/25/16 16:02 11/25/16 16:02 11/25/16 16:02 Intake and Output: 11/25/16 11/25/16 06:59 18:59 Intake Total 1700 Output Total 150 Balance 1550 - Medications Medications: Current Medications Enoxaparin Sodium (Lovenox) 40 mg SC DAILY [facility] PRN Reason: Protocol Last Admin: 11/25/16 09:39 Dose: 40 mg Famotidine (Pepcid) 20 mg IVP Q12 [facility] Last Admin: 11/25/16 09:40 Dose: 20 mg Lactated Ringer's (Lactated Ringer's) 1,000 mls @ 125 mls/hr IV .Q8H [facility] Last Admin: 11/25/16 05:30 Dose: Not Given Fluconazole (Diflucan Iv 200 Mg/100 Ml Ns) 100 mls @ 100 mls/hr IVPB DAILY [facility] Last Admin: 11/25/16 09:17 Dose: 100 mls/hr Ciprofloxacin (Cipro 400mg/200ml Dsw) 400 mg in 200 mls @ 200 mls/hr IVPB Q12 [facility] Last Admin: 11/25/16 09:36 Dose: 200 mls/hr Insulin Human Regular (Humulin R) 0 units SC Q6H [facility] PRN Reason: Protocol Last Admin: 11/25/16 11:59 Dose: Not Given Morphine Sulfate (Morphine) 2 mg IVP Q4 PRN PRN Reason: Pain, moderate (4-7) Morphine Sulfate (Morphine) 4 mg IVP Q4 PRN PRN Reason: Pain, severe (8-10) Ondansetron HCl (Zofran Inj) 4 mg IVP Q4 PRN PRN Reason: Nausea/Vomiting - Labs Labs: 11/24/16 08:50 11/25/16 05:30 - Constitutional Appears: Non-toxic, No Acute Distress - Head Exam Head Exam: ATRAUMATIC, NORMAL INSPECTION, NORMOCEPHALIC - Eye Exam Eye Exam: EOMI, Normal appearance, PERRL Pupil Exam: NORMAL ACCOMODATION - ENT Exam ENT Exam: Mucous Membranes Moist, Normal Exam - Neck Exam Neck Exam: Full ROM, Normal Inspection - Respiratory Exam Respiratory Exam: Clear to Ausculation Bilateral, NORMAL BREATHING PATTERN. absent: Rales, Rhonchi, Wheezes - Cardiovascular Exam Cardiovascular Exam: REGULAR RHYTHM, RRR, +S1, +S2. absent: JVD - GI/Abdominal Exam GI & Abdominal Exam: Soft, Hypoactive Bowel Sounds. absent: Distended, Guarding , Rebound Additional comments: multiple old scars to abdominal wall - Extremities Exam Extremities Exam: Full ROM, Normal Capillary Refill, Normal Inspection. absent : Calf Tenderness, Pedal Edema - Back Exam Back Exam: NORMAL INSPECTION - Neurological Exam Neurological Exam: Alert, Awake, CN II-XII Intact, Oriented x3 - Psychiatric Exam Psychiatric exam: Normal Affect, Normal Mood - Skin Skin Exam: Dry, Intact, Normal Color, Warm Assessment and Plan - Assessment and Plan (Free Text) Assessment: 46 years old female last admitted 06/08/16 and Discharged 06/10/16 with dx of SBO , has hx of Diabetes Mellitus;Colon resection with Ileostomy 05/2015, Then reversal of Ileostomy. She came with 4 Hours of severe generalized abdominal pain of intensity 9/10, associated with nausea and vomitus. no fever, chills, chest pain, SOB, Palpitations, diarrhea, constipation. She has had dysuria intermittently and refers abdominal pain of variable intensity after each few months, always with spontaneous relief. Ct abdomen showed SBO Patient admitted started IVF , pain management and NGT placed . surgery consulted 1. SBO Ct showed SBO NGT with 300 ml output last 24 hours patient passing flatus Will d/c NGT Start liquid diet and advance as tolerated Continue IVF and pain managemnet PRN Surgery on consult following 2. UTI with funguria follow up urine cultures Continue Cipro ( based on prior urie cx ) Started Diflucan 3. Stress Ulcer prophylaxis Pepcid 4. DVT Prophylaxis SCD
[2016-11-26] MEDS: Insulin Regular 100 units/ml SC SCH (00:01)
[2016-11-26 00:20] VITALS: PULSE 57
[2016-11-26] MEDS: Lactated Ringer's 1,000 ML IV SCH (05:28)
[2016-11-26 06:47] LABS: BASO % 0.7 % (0.0-2.0); EOS # 0.2 K/uL (0.0-0.7); EOS % 3.8 % (0.0-4.0); HEMOGLOBIN 12.4 g/dL (12.0-16.0); LYMPH # 2.6 K/uL (1.0-4.3); LYMPH % 47.9 % (20.0-40.0); MEAN CELL VOLUME 84.1 fl (81.0-99.0); MEAN CORPUSCULAR HEMOGLOBIN 27.8 pg (27.0-31.0); MONO # 0.4 K/uL (0.0-0.8); MONO % 7.4 % (0.0-10.0); NEUT # 2.1 K/uL (1.8-7.0); NEUT % 40.2 % (50.0-75.0); NRBC % 0.1 % (0.0-0.0); RBC 4.47 Mil/uL (3.80-5.20); RED CELL DISTRIBUTION WIDTH 13.4 % (11.5-14.5); WHITE BLOOD COUNT 5.3 K/uL (4.8-10.8)
[2016-11-26 07:01] LABS: BLOOD UREA NITROGEN 10 mg/dl (7-17); CALCIUM 9.7 mg/dL (8.4-10.2); GFR AFRICAN-AMERICAN > 60; GFR NON-AFRICAN AMERICAN > 60
--- NOTE | 2016-11-26 07:16 | CP.PCM.PN ---
Subjective - Date & Time of Evaluation Date of Evaluation: 11/26/16 Time of Evaluation: 07:14 - Subjective Subjective: Surgery Pt s&e. NAEON. Had BM. Tolerating diet. Denies F/C/N/V/D/CP/SOB. + amb, + pain controlled. + void Objective - Vital Signs/Intake and Output Vital Signs (last 24 hours): Temp Pulse Resp BP Pulse Ox 98.4 F 57 L 18 99/67 L 97 11/25/16 23:00 11/25/16 23:00 11/25/16 23:00 11/25/16 23:00 11/25/16 23:00 Intake and Output: 11/26/16 11/26/16 06:59 18:59 Intake Total 250 Balance 250 - Medications Medications: Current Medications Enoxaparin Sodium (Lovenox) 40 mg SC DAILY [facility] PRN Reason: Protocol Last Admin: 11/25/16 09:39 Dose: 40 mg Famotidine (Pepcid) 20 mg IVP Q12 [facility] Last Admin: 11/25/16 20:38 Dose: 20 mg Lactated Ringer's (Lactated Ringer's) 1,000 mls @ 125 mls/hr IV .Q8H [facility] Last Admin: 11/26/16 05:28 Dose: 125 mls/hr Fluconazole (Diflucan Iv 200 Mg/100 Ml Ns) 100 mls @ 100 mls/hr IVPB DAILY [facility] Last Admin: 11/25/16 09:17 Dose: 100 mls/hr Ciprofloxacin (Cipro 400mg/200ml Dsw) 400 mg in 200 mls @ 200 mls/hr IVPB Q12 [facility] Last Admin: 11/25/16 20:39 Dose: 200 mls/hr Insulin Human Regular (Humulin R) 0 units SC Q6H [facility] PRN Reason: Protocol Last Admin: 11/26/16 00:01 Dose: Not Given Morphine Sulfate (Morphine) 2 mg IVP Q4 PRN PRN Reason: Pain, moderate (4-7) Morphine Sulfate (Morphine) 4 mg IVP Q4 PRN PRN Reason: Pain, severe (8-10) Ondansetron HCl (Zofran Inj) 4 mg IVP Q4 PRN PRN Reason: Nausea/Vomiting - Labs Labs: 11/26/16 05:20 11/26/16 05:20 - Constitutional Appears: No Acute Distress - Head Exam Head Exam: ATRAUMATIC, NORMAL INSPECTION, NORMOCEPHALIC - Eye Exam Eye Exam: EOMI, Normal appearance, PERRL Pupil Exam: NORMAL ACCOMODATION, PERRL - ENT Exam ENT Exam: Mucous Membranes Moist, Normal Exam - Neck Exam Neck Exam: Full ROM, Normal Inspection. absent: Lymphadenopathy - Respiratory Exam Respiratory Exam: Clear to Ausculation Bilateral, NORMAL BREATHING PATTERN - Cardiovascular Exam Cardiovascular Exam: REGULAR RHYTHM, +S1, +S2. absent: Murmur - GI/Abdominal Exam GI & Abdominal Exam: Soft, Normal Bowel Sounds. absent: Tenderness - Rectal Exam Rectal Exam: NORMAL INSPECTION - Exam Exam: NORMAL INSPECTION - Extremities Exam Extremities Exam: Full ROM, Normal Capillary Refill, Normal Inspection. absent : Joint Swelling, Pedal Edema - Back Exam Back Exam: NORMAL INSPECTION - Neurological Exam Neurological Exam: Alert, Awake, CN II-XII Intact, Normal Gait, Oriented x3 - Psychiatric Exam Psychiatric exam: Normal Affect, Normal Mood - Skin Skin Exam: Dry, Intact, Normal Color, Warm Assessment and Plan - Assessment and Plan (Free Text) Assessment: 46 F with history of multiple surgeries presents with SBO CT Abd/pelvis:multiple SB loops and ventral hernia with non obstructed SB On CLD. Advance diet IVF Encourage ambulation Conservative management Will DW attending
[2016-11-26 07:25] VITALS: BP 117/77; RESP 20; TEMP 98.2; O2SAT 96
--- NOTE | 2016-11-26 07:40 | CP.PCM.DIS ---
Provider - Provider Date of Admission: 11/24/16 02:09 Attending physician: Agustín Grace Consults: Surgery consult Time Spent in preparation of Discharge (in minutes): 20 Hospital Course - Lab Results Lab Results: Micro Results 11/24/16 06:00 Blood-Venous Blood Culture - Preliminary NO GROWTH AFTER 24 HOURS 11/24/16 06:00 Blood-Venous Blood Culture - Preliminary NO GROWTH AFTER 24 HOURS Most Recent Lab Values WBC 5.3 K/uL (4.8-10.8) 11/26/16 05:20 RBC 4.47 Mil/uL (3.80-5.20) 11/26/16 05:20 Hgb 12.4 g/dL (12.0-16.0) 11/26/16 05:20 Hct 37.6 % (34.0-47.0) 11/26/16 05:20 MCV 84.1 fl (81.0-99.0) 11/26/16 05:20 MCH 27.8 pg (27.0-31.0) 11/26/16 05:20 MCHC 33.0 g/dL (33.0-37.0) 11/26/16 05:20 RDW 13.4 % (11.5-14.5) 11/26/16 05:20 Plt Count 243 K/uL (130-400) 11/26/16 05:20 MPV 8.0 fl (7.2-11.7) 11/26/16 05:20 Neut % (Auto) 40.2 % (50.0-75.0) L 11/26/16 05:20 Lymph % (Auto) 47.9 % (20.0-40.0) H 11/26/16 05:20 [place] % (Auto) 7.4 % (0.0-10.0) 11/26/16 05:20 Eos % (Auto) 3.8 % (0.0-4.0) 11/26/16 05:20 Baso % (Auto) 0.7 % (0.0-2.0) 11/26/16 05:20 Neut # 2.1 K/uL (1.8-7.0) 11/26/16 05:20 Lymph # 2.6 K/uL (1.0-4.3) 11/26/16 05:20 [place] # 0.4 K/uL (0.0-0.8) 11/26/16 05:20 Eos # 0.2 K/uL (0.0-0.7) 11/26/16 05:20 Baso # 0.0 K/uL (0.0-0.2) 11/26/16 05:20 Sodium 141 mmol/l (132-148) 11/26/16 05:20 Potassium 4.3 MMOL/L (3.6-5.0) 11/26/16 05:20 Chloride 102 mmol/L (98-107) 11/26/16 05:20 Carbon Dioxide 29 mmol/L (22-30) 11/26/16 05:20 Anion Gap 14 (10-20) 11/26/16 05:20 BUN 10 mg/dl (7-17) 11/26/16 05:20 Creatinine 0.7 mg/dL (0.7-1.2) 11/26/16 05:20 Est GFR ( Amer) > 60 11/26/16 05:20 Est GFR (Non-Af Amer) > 60 11/26/16 05:20 POC Glucose (mg/dL) 110 mg/dL (65-110) 11/26/16 05:43 Random Glucose 107 mg/dL (65-105) H 11/26/16 05:20 Calcium 9.7 mg/dL (8.4-10.2) 11/26/16 05:20 Total Bilirubin 1.0 mg/dl (0.2-1.3) 11/24/16 00:54 AST 31 U/L (14-36) 11/24/16 00:54 ALT 30 U/L (9-52) 11/24/16 00:54 Alkaline Phosphatase 127 U/L (38-126) H 11/24/16 00:54 Total Protein 8.2 G/DL (6.3-8.2) 11/24/16 00:54 Albumin 4.7 g/dL (3.5-5.0) 11/24/16 00:54 Globulin 3.5 gm/dL (2.2-3.9) 11/24/16 00:54 Albumin/Globulin Ratio 1.3 (1.0-2.1) 11/24/16 00:54 Lipase 87 U/L (23-300) 11/24/16 00:54 Urine Color Yellow (YELLOW) 11/24/16 02:30 Urine Clarity Cloudy (Clear) 11/24/16 02:30 Urine pH 8.0 (5.0-8.0) 11/24/16 02:30 Ur Specific [place] 1.011 (1.003-1.030) 11/24/16 02:30 Urine Protein Negative mg/dL (NEGATIVE) 11/24/16 02:30 Urine Glucose (UA) Neg mg/dL (Normal) 11/24/16 02:30 Urine Ketones Trace mg/dL (NEGATIVE) 11/24/16 02:30 Urine Blood Negative (NEGATIVE) 11/24/16 02:30 Urine Nitrate Negative (NEGATIVE) 11/24/16 02:30 Urine Bilirubin Negative (NEGATIVE) 11/24/16 02:30 Urine Urobilinogen 0.2-1.0 mg/dL (0.2-1.0) 11/24/16 02:30 Ur Leukocyte Esterase Small Ki/uL (Negative) 11/24/16 02:30 Urine RBC (Auto) 4 /hpf (0-3) H 11/24/16 02:30 Urine Microscopic WBC 9 /hpf (0-5) H 11/24/16 02:30 Ur Squamous Epith Cells 1 /hpf (0-5) 11/24/16 02:30 Urine Yeast (Budding) Mod /hpf (NEGATIVE) H 11/24/16 02:30 - Hospital Course Hospital Course: 46 years old female last admitted 06/08/16 and Discharged 06/10/16 with dx of SBO , has hx of Diabetes Mellitus;Colon resection with Ileostomy 05/2015, Then reversal of Ileostomy. She came with 4 Hours of severe generalized abdominal pain of intensity 9/10, associated with nausea and vomitus. no fever, chills, chest pain, SOB, Palpitations, diarrhea, constipation. She has had dysuria intermittently and refers abdominal pain of variable intensity after each few months, always with spontaneous relief. Ct abdomen showed SBO Patient admitted for SBo ,started IVF , pain management and NGT placed . Surgery consulted and conservative treatment recommended.She wasalso started on Doxycycline and Cipro for her UTI patient clinically improved , NGt removed and started on diet and tolerating Will discharge patient home today 1. SBO Ct showed SBO NGT had 300 ml output last 24 hours so was removed yesterday 11/25 and liquid diet was started patient passing flatus Advanced diet to regular today and tolerating well .Will d/c home treated with IVF and pain management PRN Surgery was consulted 2. UTI with funguria Continue Cipro ( based on prior urie cx ) and Diflucan for total 7 days 3. Stress Ulcer prophylaxis Pepcid 4. DVT Prophylaxis SCD Discharge Exam - Head Exam Head Exam: ATRAUMATIC, NORMAL INSPECTION, NORMOCEPHALIC - Eye Exam Eye Exam: EOMI, Normal appearance, PERRL Pupil Exam: NORMAL ACCOMODATION - ENT Exam ENT Exam: Mucous Membranes Moist, Normal Exam - Neck Exam Neck exam: Full Rom, Normal Inspection - Respiratory Exam Respiratory Exam: Clear to PA & Lateral, NORMAL BREATHING PATTERN. absent: Rales, Rhonchi, Wheezes - Cardiovascular Exam Cardiovascular Exam: REGULAR RHYTHM, RRR, +S1, +S2. absent: JVD - GI/Abdominal Exam GI & Abdominal Exam: Normal Bowel Sounds, Soft. absent: Distended, Guarding, Rebound, Tenderness Additional comments: multiple scars to abdomen - Rectal Exam Rectal Exam: Deferred - Extremities Exam Extremities exam: calf tenderness, normal capillary refill, pedal pulses present - Back Exam Back exam: NORMAL INSPECTION - Neurological Exam Neurological exam: Alert, CN II-XII Intact, Oriented x3, Reflexes Normal - Psychiatric Exam Psychiatric exam: Normal Affect, Normal Mood - Skin Skin Exam: Dry, Intact, Normal Color, Warm Discharge Plan - Discharge Medications Prescriptions: Ciprofloxacin [Cipro] 500 mg PO BID #10 tab Fluconazole [Diflucan] 150 mg PO BID #10 tab - Follow Up Plan Condition: STABLE Disposition: HOME/ ROUTINE Patient education suggested?: Yes Instructions: Heart Healthy Diet (DC), Bowel Obstruction (DC) Additional Instructions: lynda mike con moody doctora primaria dentro den 7-10 [place] Referrals: Taras Perkins MD [Staff Provider] -
[2016-11-26] MEDS: Ciprofloxacin 400mg/200ml D5W 400 MG/200 ML BAG IVPB SCH (08:27)
[2016-11-26] MEDS: Enoxaparin 40 mg Syringe SC SCH (08:29)
== END 2016-11-26 11:30 | disposition home or self-care (01) | DRG 188 ==
LOC: H.ER 00:02 → H.ERHOLD 02:09 → H.MEDSURG1 05:34
PROVIDERS: ADMIT Internal Medicine; ATTEND Internal Medicine
DX: K43.6 Other and unspecified ventral hernia with obstruction, without gangrene (principal); N39.0 Urinary tract infection, site not specified; E11.22 Type 2 diabetes mellitus with diabetic chronic kidney disease; E11.65 Type 2 diabetes mellitus with hyperglycemia; E78.5 Hyperlipidemia, unspecified; E78.00 Pure hypercholesterolemia, unspecified; Z87.442 Personal history of urinary calculi; Z90.49 Acquired absence of other specified parts of digestive tract; Z90.710 Acquired absence of both cervix and uterus; Z95.2 Presence of prosthetic heart valve

== ENCOUNTER 2017-02-05 17:24 | Emergency (ER) | payer MEDICAID ==
--- NOTE | 2017-02-05 17:50 | ED PDOC ---
HPI: Abdomen Time Seen by Provider: 02/05/17 17:41 Chief Complaint (Nursing): Abdominal Pain Chief Complaint (Provider): Abd pain History Per: Patient History/Exam Limitations: no limitations Onset/Duration Of Symptoms: Days (Yesterday) Outside of [place] travel?: No Current Symptoms Are (Timing): Still Present Additional Complaint(s): Abd pain, constant. Similar pain to when she had an obstruction in Nov. No nausea, vomit, diarrhea, weakness, dysuria. No weakness. No headaches. No back pain. Past Medical History Vital Signs: Last Vital Signs Temp 98.1 F 02/05/17 21:17 Pulse 66 02/05/17 21:17 Resp 17 02/05/17 21:17 BP 108/73 02/05/17 21:17 Pulse Ox 99 02/05/17 21:17 - Medical History PMH: Denies: Alzheimer's Disease, Chronic Kidney Disease Other PMH: bowel obstruction - Surgical History Surgical History: Cholecystectomy Other surgeries: colon surgery - Family History Family History: States: Unknown Family Hx - Living Arrangements Living Arrangements: With Family - Social History Current smoker - smoking cessation education provided: No Alcohol: None Drugs: Denies - Home Medications Home Medications: Ambulatory Orders Medication Instructions Recorded Ciprofloxacin [Cipro] 500 mg PO BID #10 tab 11/26/16 Fluconazole [Diflucan] 150 mg PO BID #10 tab 11/26/16 Nitrofurantoin Macrocrystals 100 mg PO BID #10 cap 02/05/17 [Macrobid] - Allergies Allergies/Adverse Reactions: Allergies Allergy/AdvReac Type Severity Reaction Status Date / Time No Known Allergies Allergy Verified 02/05/17 20:51 Review of Systems ROS Statement: Except As Marked, All Systems Reviewed And Found Negative Gastrointestinal: Positive for: Abdominal Pain Physical Exam - Reviewed Nursing Documentation Reviewed: Yes Vital Signs Reviewed: Yes - Physical Exam Appears: Positive for: Non-toxic, No Acute Distress Head Exam: Positive for: ATRAUMATIC, NORMAL INSPECTION, NORMOCEPHALIC Skin: Positive for: Normal Color, Warm, DRY Eye Exam: Positive for: EOMI, Normal appearance, PERRL ENT: Positive for: Normal ENT Inspection Neck: Positive for: Normal, Painless ROM Cardiovascular/Chest: Positive for: Regular Rate, Rhythm Respiratory: Positive for: CNT, Normal Breath Sounds Gastrointestinal/Abdominal: Positive for: Bowel Sounds, Soft, Tenderness (LUQ and above periumbilical) Back: Positive for: Normal Inspection. Negative for: L CVA Tenderness, R CVA Tenderness Extremity: Positive for: Normal ROM. Negative for: Tenderness, Pedal Edema Neurologic/Psych: Positive for: Alert, Oriented - Laboratory Results Result Diagrams: 02/05/17 18:17 02/05/17 18:17 Interpretation Of Abn Labs: urine wbc - ECG O2 Sat by Pulse Oximetry: 98 Pulse Ox Interpretation: Normal - Progress ED Course And Treament: 937: Stable. AAOx3. Pain controlled. Possible uti. Will rx. Pt. to fu with surgery for hernia and pcp for uti. Tolerated PO. Disposition - Clinical Impression Clinical Impression: Hernia, UTI (urinary tract infection) - Patient ED Disposition Is Patient to be Admitted: No Counseled Patient/Family Regarding: Studies Performed, Diagnosis, Need For Followup, Rx Given - Disposition Referrals: [facility] [Outside] - 02/06/17 Taras Perkins MD [Staff Provider] - 02/06/17 Disposition: Routine/Home Disposition Time: 21:45 Condition: STABLE Additional Instructions: Return if not better in 3 days. Prescriptions: Nitrofurantoin Macrocrystals [Macrobid] 100 mg PO BID #10 cap Instructions: Ventral Hernia (ED), Urinary Tract Infection in Women (ED) Forms: [employer] (Italian), [facility] ED School/Work Excuse Print Language: OCCITAN
[2017-02-05] MEDS ORDERED: Sodium Chloride 0.9% 1,000 ML IV STA (17:52)
[2017-02-05] MEDS ORDERED: Iohexol 240 (50 ml) PO ONE (17:52)
[2017-02-05] MEDS ORDERED: Iohexol 240 (50 ml) ONE (18:02)
[2017-02-05 18:21] LABS: BASO % 0.5 % (0.0-2.0); EOS # 0.2 K/uL (0.0-0.7); EOS % 3.6 % (0.0-4.0); HEMATOCRIT 35.8 % (34.0-47.0); LYMPH # 2.6 K/uL (1.0-4.3); LYMPH % 43.2 % (20.0-40.0); MEAN CELL VOLUME 83.5 fl (81.0-99.0); MEAN CORPUSCULAR HEMOGLOBIN 28.2 pg (27.0-31.0); MEAN CORPUSCULAR HGB CONC 33.7 g/dL (33.0-37.0); MEAN PLATELET VOLUME 7.8 fl (7.2-11.7); MONO # 0.4 K/uL (0.0-0.8); MONO % 7.4 % (0.0-10.0); NEUT # 2.7 K/uL (1.8-7.0); NEUT % 45.3 % (50.0-75.0); NRBC % 0.1 % (0.0-0.0); RED CELL DISTRIBUTION WIDTH 13.2 % (11.5-14.5)
[2017-02-05 18:48] LABS: ALB/GLOB RATIO 1.3 (1.0-2.1); ALKALINE PHOSPHATASE 99 U/L (38-126); ALT/SGPT 36 U/L (9-52); AST/SGOT 20 U/L (14-36); BILIRUBIN,TOTAL 0.5 mg/dl (0.2-1.3); BLOOD UREA NITROGEN 18 mg/dl (7-17); CALCIUM 8.6 mg/dL (8.4-10.2); CARBON DIOXIDE 28 mmol/L (22-30); CHLORIDE 106 mmol/L (98-107); GFR AFRICAN-AMERICAN > 60; GLUCOSE,RANDOM 117 mg/dL (65-105); LIPASE 146 U/L (23-300); POTASSIUM 4.2 MMOL/L (3.6-5.0); SODIUM 143 mmol/l (132-148); TOTAL PROTEIN 8.1 G/DL (6.3-8.2)
[2017-02-05 19:16] LABS: RBC URINE 4 /hpf (0-3); URINE BACTERIA RARE (<OCC); URINE BILIRUBIN NEGATIVE (NEGATIVE); URINE BLOOD NEGATIVE (NEGATIVE); URINE COLOR YELLOW (YELLOW); URINE GLUCOSE (UA) NEG (Normal); URINE KETONE NEGATIVE (NEGATIVE); URINE LEUKOCYTE ESTERASE TRACE Leu/uL (Negative); URINE PROTEIN NEGATIVE (NEGATIVE); URINE UROBILINOGEN 0.2-1.0 mg/dL (0.2-1.0); WBC URINE 13 /hpf (0-5)
[2017-02-05] MEDS ORDERED: Sodium Chloride 0.9% 50 ML IV ONE (20:15)
[2017-02-05] MEDS ORDERED: Iohexol 300 100 ML IJ ONE (20:15)
[2017-02-05 21:17] VITALS: BP 108/73; PULSE 66; RESP 17; TEMP 98.1
--- NOTE | 2017-02-05 21:29 | CT ---
EXAM: CT Abdomen and Pelvis With Intravenous Contrast CLINICAL HISTORY: 46 years old, female; Pain; Abdominal pain; Generalized; Prior surgery; Surgery date: 6+ months; Surgery type: Gb removed; Patient HX: HX : renal stones, hysterectomy, cholecystectomy, colon resection, ileostomy colon restriction with reversal; Additional info: Abd pain TECHNIQUE: Axial computed tomography images of the abdomen and pelvis with intravenous contrast. All CT scans at this facility use one or more dose reduction techniques, viz.: automated exposure control; ma/kV adjustment per patient size (including targeted exams where dose is matched to indication; i.e. head); or iterative reconstruction technique. Coronal and sagittal reformatted images were created and reviewed. CONTRAST: 90 mL of [id number] administered intravenously. COMPARISON: CT - ABD PELVIS IV CONTRAST ONLY 2016-11-24 01:17 FINDINGS: Lower thorax: Few solid/subsolid pulmonary nodules, up to 0.3 cm. ABDOMEN: Liver: Unremarkable. No mass. Gallbladder and bile ducts: Cholecystectomy. No ductal dilation. Pancreas: No ductal dilation. No mass. Spleen: No splenomegaly. Adrenals: No mass. Kidneys and ureters: Few calculi within RIGHT kidney. No hydronephrosis. Stomach and bowel: Postsurgical changes of distal colon. No definite mural thickening. No obstruction. Appendix: Normal caliber. No inflammation. PELVIS: Bladder: Apparent mild bladder wall thickening. Incomplete distention, limiting evaluation. Reproductive: Hysterectomy. Subperitoneal space: Mild soft tissue density within presacral space, grossly stable. ABDOMEN and PELVIS: Intraperitoneal space: No significant fluid collection. No free air. Bones/joints: Partial fusion across L3-L4 level. No acute fracture. Soft tissues: Few small ventral hernias containing fat and fat/portion of small bowel. Small spigelian hernia containing fat. Vasculature: Unremarkable. No aneurysm. Lymph nodes: No pathologically enlarged lymph nodes. IMPRESSION: 1. Mild cystitis vs underdistention. Correlate with urinalysis. 2. Pulmonary nodules. For low-risk patients, no follow-up is necessary. For high-risk patients (smoking history or other known risk factors) an optional CT at 12 months could be performed. 3. Incidental/non-acute findings are described above.
[2017-02-05 21:37] VITALS: O2SAT 98
--- NOTE | 2017-02-06 07:29 | RAD ---
PROCEDURE: Radiographs of the chest and abdomen (obstructive series) HISTORY: Pain COMPARISON: February 05, 2017. CT abdomen and pelvis. TECHNIQUE: AP radiograph of the chest, with upright and supine radiographs of the abdomen. FINDINGS: CHEST: Lungs: Clear. Cardiovascular: Normal size heart. No pulmonary vascular congestion. Pleura: No pleural fluid. No pneumothorax. Other findings: None. ABDOMEN AND PELVIS: Bowel: Unremarkable bowel gas pattern. No evidence of mechanical obstruction. Free air: None. Bones: Unremarkable. Other findings: Contrast in nondistended small bowel related to concurrent CT abdomen and pelvis IMPRESSION: Unremarkable radiographs of chest and abdomen. No evidence of mechanical bowel obstruction. Please note: No preliminary report/ interpretation of this examination rendered by emergency department personnel (Attending physician, Physician Farm Machinery Engine Mechanic).
== END 2017-02-05 22:03 | disposition home or self-care (01) ==
LOC: H.ER 17:24
DX: N39.0 Urinary tract infection, site not specified (principal); Z87.442 Personal history of urinary calculi; K46.9 Unspecified abdominal hernia without obstruction or gangrene
CPT/HCPCS: 74022; 74177; 80053; 81003; 81025; 82948; 83690; 85025; 96374; 99285; J1885; J7040; Q9966; Q9967

== ENCOUNTER 2017-07-16 17:28 | Inpatient (IN) | payer MEDICAID ==
[2017-07-16] MEDS ORDERED: Morphine 4 MG/ML VIAL IV STA (17:58)
--- NOTE | 2017-07-16 18:26 | ED PDOC ---
HPI: Abdomen Time Seen by Provider: 07/16/17 17:42 Chief Complaint (Nursing): Abdominal Pain Chief Complaint (Provider): Abdominal Pain History Per: Patient History/Exam Limitations: no limitations Onset/Duration Of Symptoms: Days (x1) Current Symptoms Are (Timing): Still Present Location Of Pain/Discomfort: RUQ, Other (upper quadrants) Associated Symptoms: Nausea, Vomiting. 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 Patient reports associated nausea and vomiting. She states that she has a hernia repair surgery scheduled for July 26. Patient denies any fever, chest pain, shortness of breath, vaginal bleeding, dysuria, and hematuria. PMD: [place] Provider Past Medical History Reviewed: Historical Data, Nursing Documentation, Vital Signs Vital Signs: Last Vital Signs Temp 99.0 F 07/16/17 17:34 Pulse 86 07/16/17 17:34 Resp 24 07/16/17 17:34 BP 141/96 H 07/16/17 17:34 Pulse Ox 100 07/16/17 18:41 - Medical History PMH: Hypercholesterolemia, Kidney Stones Denies: Alzheimer's Disease, Chronic Kidney Disease - Surgical History Surgical History: Cholecystectomy - Family History Family History: States: Unknown Family Hx - Social History Drugs: Denies - Home Medications Home Medications: Ambulatory Orders Medication Instructions Recorded Ciprofloxacin [Cipro] 500 mg PO BID #10 tab 11/26/16 Fluconazole [Diflucan] 150 mg PO BID #10 tab 11/26/16 Nitrofurantoin Macrocrystals 100 mg PO BID #10 cap 02/05/17 [Macrobid] - Allergies Allergies/Adverse Reactions: Allergies Allergy/AdvReac Type Severity Reaction Status Date / Time No Known Allergies Allergy Verified 07/16/17 17:33 Review of Systems ROS Statement: Except As Marked, All Systems Reviewed And Found Negative Constitutional: Negative for: Fever Cardiovascular: Negative for: Chest Pain Respiratory: Negative for: Shortness of Breath Gastrointestinal: Positive for: Nausea, Vomiting, Abdominal Pain (upper quadrants) Genitourinary Female: Negative for: Dysuria, Hematuria, Vaginal Bleeding Physical Exam - Reviewed Nursing Documentation Reviewed: Yes Vital Signs Reviewed: Yes - Physical Exam Appears: Positive for: Non-toxic, In Acute Distress (mild) Head Exam: Positive for: ATRAUMATIC, NORMAL INSPECTION, NORMOCEPHALIC Skin: Positive for: Normal Color, Warm, Dry Eye Exam: Positive for: EOMI, Normal appearance, PERRL Neck: Positive for: Normal, Painless ROM, Supple Cardiovascular/Chest: Positive for: Regular Rate, Rhythm. Negative for: Murmur Respiratory: Positive for: Normal Breath Sounds. Negative for: Respiratory Distress Gastrointestinal/Abdominal: Positive for: Normal Exam, Bowel Sounds, Soft, Tenderness (upper quadrants), Other (well healed midline scar, well healed right lower quadrant scar) Back: Positive for: Normal Inspection. Negative for: L CVA Tenderness, R CVA Tenderness, Vertebral Tenderness Extremity: Positive for: Normal ROM. Negative for: Pedal Edema, Deformity, Swelling Neurologic/Psych: Positive for: Alert, Oriented. Negative for: Motor/Sensory Deficits - Laboratory Results Result Diagrams: 07/16/17 18:27 07/16/17 18:27 - ECG O2 Sat by Pulse Oximetry: 100 (RA) Pulse Ox Interpretation: Normal Medical Decision Making Medical Decision Making: Time: 17:56 Initial Plan: --Blood Type and Screen --CT ABD/Pelvis --CMP --Lipase --ED Urine --cBC --Morphine 4 mg IV --IV Fluids --Pepcid 20 mg IVP --Zofran 8 mg PO --Blood Culture --Urine Culture --Urinalysis Scribe Attestation: Documented by Nathalie Dey, acting as a scribe for William Burkett DO. Provider Scribe Attestation: All medical record entries made by the Scribe were at my direction and personally dictated by me. I have reviewed the chart and agree that the record accurately reflects my personal performance of the history, physical exam, medical decision making, and the department course for this patient. I have also personally directed, reviewed, and agree with the discharge instructions and disposition. Disposition - Clinical Impression Clinical Impression: Abdominal pain - Disposition Disposition Time: 19:00 Condition: UNKNOWN Forms: [employer] (Yakut) Patient Signed Over To: Calvin Reynolds Handoff Comments: pending: CT and UA
[2017-07-16 18:36] LABS: BASO % 0.2 % (0.0-2.0); EOS # 0.1 K/uL (0.0-0.7); EOS % 0.8 % (0.0-4.0); HEMOGLOBIN 12.9 g/dL (12.0-16.0); LYMPH # 1.5 K/uL (1.0-4.3); LYMPH % 12.4 % (20.0-40.0); MEAN CELL VOLUME 82.4 fl (81.0-99.0); MEAN CORPUSCULAR HEMOGLOBIN 27.7 pg (27.0-31.0); MEAN CORPUSCULAR HGB CONC 33.7 g/dL (33.0-37.0); MEAN PLATELET VOLUME 7.7 fl (7.2-11.7); MONO # 0.6 K/uL (0.0-0.8); MONO % 4.9 % (0.0-10.0); NEUT # 9.7 K/uL (1.8-7.0); NEUT % 81.7 % (50.0-75.0); NRBC % 0.1 % (0.0-0.0); RBC 4.64 Mil/uL (3.80-5.20); RED CELL DISTRIBUTION WIDTH 13.5 % (11.5-14.5); WHITE BLOOD COUNT 11.9 K/uL (4.8-10.8)
[2017-07-16] MEDS ORDERED: Morphine 4 MG/ML VIAL ONE (18:42)
[2017-07-16 18:51] LABS: ALB/GLOB RATIO 1.1 (1.0-2.1); ALBUMIN 4.6 g/dL (3.5-5.0); ALT/SGPT 40 U/L (9-52); AST/SGOT 23 U/L (14-36); BLOOD UREA NITROGEN 15 mg/dl (7-17); CALCIUM 9.6 mg/dL (8.4-10.2); GFR AFRICAN-AMERICAN > 60; GFR NON-AFRICAN AMERICAN > 60; LIPASE 103 U/L (23-300)
[2017-07-16] MEDS: Sodium Chloride 0.9% 1,000 ML IV SCH (18:53)
[2017-07-16 19:09] LABS: SQUAMOUS EPITHIAL 1 /hpf (0-5); URINE AMORPHOUS SEDIMENT FEW /ul (<OCC); URINE BACTERIA RARE (<OCC); URINE BILIRUBIN NEGATIVE (NEGATIVE); URINE BLOOD NEGATIVE (NEGATIVE); URINE CLARITY CLOUDY (Clear); URINE COLOR YELLOW (YELLOW); URINE GLUCOSE (UA) NEG (Normal); URINE LEUKOCYTE ESTERASE NEG Leu/uL (Negative); URINE PROTEIN NEGATIVE (NEGATIVE); URINE UROBILINOGEN 0.2-1.0 mg/dL (0.2-1.0)
[2017-07-16] MEDS ORDERED: Iohexol 300 100 ML IJ ONE (19:12)
--- NOTE | 2017-07-16 19:45 | ED PDOC ---
- Laboratory Results Result Diagrams: 07/16/17 18:27 07/16/17 18:27 - ECG O2 Sat by Pulse Oximetry: 100 (RA) Pulse Ox Interpretation: Normal Medical Decision Making Medical Decision Making: Time: 19:00 Patient was signed out to me by Dr. Rose, pending urine, CT, and labs. CT: FINDINGS: Lung bases: Minimal atelectasis/scarring. RLL calcified granuloma. ABDOMEN: Liver: Fatty infiltration. Gallbladder and bile ducts: Cholecystectomy. No significant ductal dilation. Pancreas: No ductal dilation. No mass. Spleen: No splenomegaly. Adrenals: No mass. Kidneys and ureters: Few calculi within RIGHT kidney. No hydronephrosis. Stomach and bowel: Postsurgical changes of distal large bowel. Postsurgical changes of small bowel. Several mildly dilated loops of small bowel proximal to small bowel anastomosis. Mild stranding within associated mesentery. No definite mural thickening. Appendix: No findings to suggest acute appendicitis. PELVIS: Bladder: Unremarkable. Reproductive: Hysterectomy. Subperitoneal space: Soft tissue thickening in presacral region, grossly stable. ABDOMEN and PELVIS: Intraperitoneal space: No significant fluid collection. No free air. Bones/joints: Partial fusion of lower lumbar spine. No acute fracture. Soft tissues: Few small to moderate sized broad-based ventral hernias containing dilated loops of small bowel. Vasculature: Unremarkable. No aneurysm. Lymph nodes: No pathologically enlarged lymph nodes. IMPRESSION: 1. Findings suggestive of obstruction near level of small bowel anastomosis. 2. Incidental/non-acute findings are described above. 20:[address] Perkins for small bowel obstruction, who took care of her in November 2016. Dr. Perkins recommended calling surgery furniture rental consultant. Reevaluation: patient complains of increasing pain. Pain medications ordered. 21:10 Dr. Nick accepted consult for the patient. Provider will call surgery resident to discuss patient's case. 21:30 Dr. Santo accepted patient for admission to the hospital. discussed plan w patient, agreeable pt feels better w toradol ngt placed by RN Scribe Attestation: Documented by Nathalie Dey, acting as a scribe for Calvin Reynolds MD Provider Scribe Attestation: All medical record entries made by the Scribe were at my direction and personally dictated by me. I have reviewed the chart and agree that the record accurately reflects my personal performance of the history, physical exam, medical decision making, and the department course for this patient. I have also personally directed, reviewed, and agree with the discharge instructions and disposition. Disposition Counseled Patient/Family Regarding: Studies Performed, Diagnosis - Clinical Impression Clinical Impression: Abdominal pain, Small bowel obstruction - POA Present On Arrival: None - Disposition Disposition: Admitted as In-Patient Disposition Time: 20:25 Condition: FAIR
--- NOTE | 2017-07-16 19:59 | CT ---
EXAM: CT Abdomen and Pelvis With Intravenous Contrast CLINICAL HISTORY: 47 years old, female; Pain; Abdominal pain; Epigastric; Additional info: Upper abdominal pain, h/o obstruction TECHNIQUE: Axial computed tomography images of the abdomen and pelvis with intravenous contrast. All CT scans at this facility use one or more dose reduction techniques, viz.: automated exposure control; ma/kV adjustment per patient size (including targeted exams where dose is matched to indication; i.e. head); or iterative reconstruction technique. Coronal and sagittal reformatted images were created and reviewed. CONTRAST: 95 mL of OMNIPAQUE 300 administered intravenously. COMPARISON: CT - ABD PELVIS IV CONTRAST ONLY 2016-11-24 01:17 FINDINGS: Lung bases: Minimal atelectasis/scarring. RLL calcified granuloma. ABDOMEN: Liver: Fatty infiltration. Gallbladder and bile ducts: Cholecystectomy. No significant ductal dilation. Pancreas: No ductal dilation. No mass. Spleen: No splenomegaly. Adrenals: No mass. Kidneys and ureters: Few calculi within RIGHT kidney. No hydronephrosis. Stomach and bowel: Postsurgical changes of distal large bowel. Postsurgical changes of small bowel. Several mildly dilated loops of small bowel proximal to small bowel anastomosis. Mild stranding within associated mesentery. No definite mural thickening. Appendix: No findings to suggest acute appendicitis. PELVIS: Bladder: Unremarkable. Reproductive: Hysterectomy. Subperitoneal space: Soft tissue thickening in presacral region, grossly stable. ABDOMEN and PELVIS: Intraperitoneal space: No significant fluid collection. No free air. Bones/joints: Partial fusion of lower lumbar spine. No acute fracture. Soft tissues: Few small to moderate sized broad-based ventral hernias containing dilated loops of small bowel. Vasculature: Unremarkable. No aneurysm. Lymph nodes: No pathologically enlarged lymph nodes. IMPRESSION: 1. Findings suggestive of obstruction near level of small bowel anastomosis. 2. Incidental/non-acute findings are described above.
[2017-07-16] MEDS ORDERED: Morphine 4 MG/ML VIAL IV ONE (21:02)
[2017-07-16] MEDS ORDERED: Sodium Chloride 0.9% 1,000 ML IV STA (21:08)
--- NOTE | 2017-07-16 22:56 | CP.PCM.CON ---
<Nazario Casiano - Last Filed: 07/17/17 02:13> History of Present Illness - History of Present Illness History of Present Illness: General Surgery Consult Note for Dr. Nick Reason for consult: abdominal pain, suspected SBO 47F with PMH that includes recurrent small bowel obstruction, s/p teratoma removal with small bowel resection and ileostomy, s/p ileostomy reversal who presents to [facility] for abdominal pain. Patient was seen and evaluated in the ED. Patient states that she has had pain for one day. She states that pain began yesterday around 2 pm and then had gotten progressively worse today. She decided to call ambulance due to the pain. Patient reports to having similar pain in past with a previous SBO. She rates pain as moderate to severe. She describes pain as constant and throbbing located in aubree-umbilical region. She reports 2 episodes of nausea with non-bloody, non-bilious emesis today. She reports 2 loose BM today (one in ambulance earlier and one in ED around 3 pm). Eating/drinking, palpation and movements exacerbates pain while the pain medication in ED helped alleviate it. Patient was schedule to have abdominal hernia repair and abdominoplasty next week at [facility] in the [place] on July 26. Admits chills. Denies fever, chest pain, shortness of breath, palpitations, diarrhea, constipation, incontinence, or urinary symptoms. PMD: located in [place] PMH: recurrent small bowel obstruction, HLD, DM controlled with diet/exercise Meds: As per EMR Allergy: NKDA PSH: cholecystectomy, hernia repair, teratoma removal with small bowel resection and ileostomy, ileostomy reversal, tubal ligation FH: non-contributory Social: denies tobacco/EtOH/illicit drug use, lives with family Review of Systems - Review of Systems All systems: reviewed and no additional remarkable complaints except (as per HPI ) Past Patient History - Past Medical History & Family History Past Medical History?: Yes - Past Social History Drugs: Denies - CARDIAC Hx Hypercholesterolemia: Yes - PULMONARY Hx Respiratory Disorders: No - NEUROLOGICAL Hx Alzheimer's Disease: No - HEENT Hx HEENT Problems: No - RENAL Hx Chronic Kidney Disease: No Hx Kidney Stones: Yes - ENDOCRINE/METABOLIC Hx Diabetes Mellitus Type 2: Yes - HEMATOLOGICAL/ONCOLOGICAL Hx Blood Disorders: No - INTEGUMENTARY Hx Dermatological Problems: No - MUSCULOSKELETAL/RHEUMATOLOGICAL Hx Musculoskeletal Disorders: No - GASTROINTESTINAL Hx Bowel Surgery: Yes - GENITOURINARY/GYNECOLOGICAL Hx Genitourinary Disorders: No - PSYCHIATRIC Hx Psychophysiologic Disorder: No Hx Substance Use: No - SURGICAL HISTORY Hx Cholecystectomy: Yes - ANESTHESIA Hx Anesthesia: Yes Hx Anesthesia Reactions: No Meds Allergies/Adverse Reactions: Allergies Allergy/AdvReac Type Severity Reaction Status Date / Time No Known Allergies Allergy Verified 07/16/17 17:33 - Medications Medications: Current Medications Sodium Chloride (Sodium Chloride 0.9%) 1,000 mls @ 1,000 mls/hr IV .Q1H ANDIE Stop: 07/17/17 17:56 Last Admin: 07/16/17 18:53 Dose: 1,000 mls/hr Physical Exam - Constitutional Appears: Well, No Acute Distress - Head Exam Head Exam: ATRAUMATIC, NORMOCEPHALIC - Eye Exam Eye Exam: EOMI, Normal appearance Pupil Exam: PERRL - ENT Exam ENT Exam: Mucous Membranes Moist Additional comments: NGT in place with ~200 cc of light green output - Neck Exam Neck exam: Positive for: Full Rom. Negative for: Tenderness - Respiratory Exam Respiratory Exam: NORMAL BREATHING PATTERN - Cardiovascular Exam Cardiovascular Exam: REGULAR RHYTHM - GI/Abdominal Exam GI & Abdominal Exam: Soft, Tenderness (periumbilical). absent: Distended, Firm , Guarding, Rebound Additional comments: heal midline incision and right sided horizontal incision - Extremities Exam Extremities exam: Positive for: normal capillary refill, pedal pulses present. Negative for: calf tenderness - Back Exam Back exam: absent: CVA tenderness (L), CVA tenderness (R) - Neurological Exam Neurological exam: Alert, CN II-XII Intact, Oriented x3 - Psychiatric Exam Psychiatric exam: Normal Affect, Normal Mood - Skin Skin Exam: Dry, Intact, Normal Color, Warm Results - Vital Signs Recent Vital Signs: Last Vital Signs Temp 99.0 F 07/16/17 17:34 Pulse 78 07/16/17 22:30 Resp 18 07/16/17 22:30 BP 122/74 07/16/17 22:30 Pulse Ox 100 07/16/17 22:30 - Labs Result Diagrams: 07/16/17 18:27 07/16/17 18:27 Labs: Laboratory Results - last 24 hr 07/16/17 07/16/17 07/16/17 18:27 18:27 18:27 WBC 11.9 H D RBC 4.64 Hgb 12.9 Hct 38.2 MCV 82.4 MCH 27.7 MCHC 33.7 RDW 13.5 Plt Count 319 MPV 7.7 Neut % (Auto) 81.7 H Lymph % (Auto) 12.4 L Powell % (Auto) 4.9 Eos % (Auto) 0.8 Baso % (Auto) 0.2 Neut # (Auto) 9.7 H Lymph # (Auto) 1.5 Powell # (Auto) 0.6 Eos # (Auto) 0.1 Baso # (Auto) 0.0 Sodium 144 Potassium 3.6 Chloride 101 Carbon Dioxide 24 Anion Gap 23 H BUN 15 Creatinine 0.5 L Est GFR ( Amer) > 60 Est GFR (Non-Af Amer) > 60 Random Glucose 129 H Calcium 9.6 Total Bilirubin 1.0 AST 23 ALT 40 Alkaline Phosphatase 127 H D Total Protein 8.7 H Albumin 4.6 Globulin 4.1 H Albumin/Globulin Ratio 1.1 Lipase 103 Urine Color Yellow Urine Clarity Cloudy Urine pH 8.0 Ur Specific [place] 1.012 Urine Protein Negative Urine Glucose (UA) Neg Urine Ketones Negative Urine Blood Negative Urine Nitrate Negative Urine Bilirubin Negative Urine Urobilinogen 0.2-1.0 Ur Leukocyte Esterase Neg Urine RBC (Auto) 2 Urine Microscopic WBC 3 Ur Squamous Epith Cells 1 Amorphous Sediment Few H Urine Bacteria Rare Blood Type Antibody Screen BBK History Checked 07/16/17 18:27 WBC RBC Hgb Hct MCV MCH MCHC RDW Plt Count MPV Neut % (Auto) Lymph % (Auto) Powell % (Auto) Eos % (Auto) Baso % (Auto) Neut # (Auto) Lymph # (Auto) Powell # (Auto) Eos # (Auto) Baso # (Auto) Sodium Potassium Chloride Carbon Dioxide Anion Gap BUN Creatinine Est GFR ( Amer) Est GFR (Non-Af Amer) Random Glucose Calcium Total Bilirubin AST ALT Alkaline Phosphatase Total Protein Albumin Globulin Albumin/Globulin Ratio Lipase Urine Color Urine Clarity Urine pH Ur Specific [place] Urine Protein Urine Glucose (UA) Urine Ketones Urine Blood Urine Nitrate Urine Bilirubin Urine Urobilinogen Ur Leukocyte Esterase Urine RBC (Auto) Urine Microscopic WBC Ur Squamous Epith Cells Amorphous Sediment Urine Bacteria Blood Type A POSITIVE Antibody Screen Negative BBK History Checked No verified bt Assessment & Plan - Assessment and Plan (Free Text) Plan: 47 F with suspected SBO -NPO -IV fluids -Analgesics/Anti-emetics PRN -NGT to low continuous suction -Strict I's & O's -Monitor bowel function -Serial abd exams -Discussed with Dr. Sandoval Casiano PGY1 <Stefanie Nick - Last Filed: 07/17/17 09:47> Meds - Medications Medications: Current Medications Famotidine (Pepcid) 20 mg IVP DAILY [facility] Last Admin: 07/17/17 09:00 Dose: 20 mg Hydromorphone HCl (Dilaudid) 1 mg IVP Q6 PRN PRN Reason: Pain, severe (8-10) Last Admin: 07/17/17 03:59 Dose: 1 mg Sodium Chloride (Sodium Chloride 0.9%) 1,000 mls @ 1,000 mls/hr IV .Q1H ANDIE Stop: 07/17/17 17:56 Last Admin: 07/17/17 03:42 Dose: Not Given Lactated Ringer's (Lactated Ringer's) 1,000 mls @ 125 mls/hr IV .Q8H ANDIE Last Admin: 07/17/17 09:00 Dose: 125 mls/hr Ketorolac Tromethamine (Toradol) 15 mg IVP Q6 PRN PRN Reason: Pain, severe (8-10) Last Admin: 07/17/17 00:48 Dose: 15 mg Ondansetron HCl (Zofran Odt) 8 mg PO Q8H PRN PRN Reason: Nausea/Vomiting Last Admin: 07/17/17 02:21 Dose: 8 mg Results - Vital Signs Recent Vital Signs: Last Vital Signs Temp 98.7 F 07/17/17 08:10 Pulse 105 H 07/17/17 08:10 Resp 20 07/17/17 08:10 BP 104/69 07/17/17 08:10 Pulse Ox 94 L 07/17/17 08:10 - Labs Result Diagrams: 07/16/17 18:27 07/16/17 18:27 Labs: Laboratory Results - last 24 hr 07/16/17 07/16/17 07/16/17 18:27 18:27 18:27 WBC 11.9 H D RBC 4.64 Hgb 12.9 Hct 38.2 MCV 82.4 MCH 27.7 MCHC 33.7 RDW 13.5 Plt Count 319 MPV 7.7 Neut % (Auto) 81.7 H Lymph % (Auto) 12.4 L Powell % (Auto) 4.9 Eos % (Auto) 0.8 Baso % (Auto) 0.2 Neut # (Auto) 9.7 H Lymph # (Auto) 1.5 Powell # (Auto) 0.6 Eos # (Auto) 0.1 Baso # (Auto) 0.0 Sodium 144 Potassium 3.6 Chloride 101 Carbon Dioxide 24 Anion Gap 23 H BUN 15 Creatinine 0.5 L Est GFR ( Amer) > 60 Est GFR (Non-Af Amer) > 60 Random Glucose 129 H Calcium 9.6 Total Bilirubin 1.0 AST 23 ALT 40 Alkaline Phosphatase 127 H D Total Protein 8.7 H Albumin 4.6 Globulin 4.1 H Albumin/Globulin Ratio 1.1 Lipase 103 Urine Color Yellow Urine Clarity Cloudy Urine pH 8.0 Ur Specific [place] 1.012 Urine Protein Negative Urine Glucose (UA) Neg Urine Ketones Negative Urine Blood Negative Urine Nitrate Negative Urine Bilirubin Negative Urine Urobilinogen 0.2-1.0 Ur Leukocyte Esterase Neg Urine RBC (Auto) 2 Urine Microscopic WBC 3 Ur Squamous Epith Cells 1 Amorphous Sediment Few H Urine Bacteria Rare Blood Type Antibody Screen BBK History Checked 07/16/17 18:27 WBC RBC Hgb Hct MCV MCH MCHC RDW Plt Count MPV Neut % (Auto) Lymph % (Auto) Powell % (Auto) Eos % (Auto) Baso % (Auto) Neut # (Auto) Lymph # (Auto) Powell # (Auto) Eos # (Auto) Baso # (Auto) Sodium Potassium Chloride Carbon Dioxide Anion Gap BUN Creatinine Est GFR ( Amer) Est GFR (Non-Af Amer) Random Glucose Calcium Total Bilirubin AST ALT Alkaline Phosphatase Total Protein Albumin Globulin Albumin/Globulin Ratio Lipase Urine Color Urine Clarity Urine pH Ur Specific [place] Urine Protein Urine Glucose (UA) Urine Ketones Urine Blood Urine Nitrate Urine Bilirubin Urine Urobilinogen Ur Leukocyte Esterase Urine RBC (Auto) Urine Microscopic WBC Ur Squamous Epith Cells Amorphous Sediment Urine Bacteria Blood Type A POSITIVE Antibody Screen Negative BBK History Checked No verified bt Assessment & Plan - Assessment and Plan (Free Text) Plan: Patient notes severe pain early this morning, states that shortly after receiving medication she began passing multiple soft/liquid bowel movements with improvement in pain. NGT with scanty output of gastrid-type fluids. Abdomen now soft, non-distended. No palpable hernia protrusion. Probable resolving SBO, will observe for complete resolution - Date & Time Date: 07/17/17 Time: 09:47
[2017-07-16] MEDS ORDERED: Sodium Chloride 0.9% 1,000 ML IV SCH (23:30)
[2017-07-17] MEDS: Lactated Ringer's 1,000 ML IV SCH ×4 (00:47→20:59)
[2017-07-17] MEDS: Sodium Chloride 0.9% 1,000 ML IV SCH ×2 (02:09→03:42)
[2017-07-17 12:03] LABS: HEMOGLOBIN 12.6 g/dL (12.0-16.0); MEAN CELL VOLUME 83.3 fl (81.0-99.0); MEAN CORPUSCULAR HEMOGLOBIN 27.8 pg (27.0-31.0); MEAN CORPUSCULAR HGB CONC 33.4 g/dL (33.0-37.0); RBC 4.54 Mil/uL (3.80-5.20); RED CELL DISTRIBUTION WIDTH 13.5 % (11.5-14.5); WHITE BLOOD COUNT 2.9 K/uL (4.8-10.8)
--- NOTE | 2017-07-17 12:10 | CP.PCM.PN ---
Subjective - Date & Time of Evaluation Date of Evaluation: 07/17/17 Time of Evaluation: 12:07 - Subjective Subjective: SURGERY NOTE FOR DR. ESCOBAR 47F seen and examined at bedside. Patient states she is still having pain diffusely in the abdomen. Denies nausea/vomiting, states she has had multiple bowel movements but does not know if she is passing gas. Denies fevers/chills. She has had multiple episodes in the past Objective - Vital Signs/Intake and Output Vital Signs (last 24 hours): Temp Pulse Resp BP Pulse Ox 98.7 F 105 H 20 104/69 94 L 07/17/17 09:00 07/17/17 09:00 07/17/17 09:00 07/17/17 09:00 07/17/17 09:00 - Medications Medications: Current Medications Famotidine (Pepcid) 20 mg IVP DAILY [facility] Last Admin: 07/17/17 09:00 Dose: 20 mg Hydromorphone HCl (Dilaudid) 1 mg IVP Q6 PRN PRN Reason: Pain, severe (8-10) Last Admin: 07/17/17 03:59 Dose: 1 mg Sodium Chloride (Sodium Chloride 0.9%) 1,000 mls @ 1,000 mls/hr IV .Q1H ANDIE Stop: 07/17/17 17:56 Last Admin: 07/17/17 03:42 Dose: Not Given Lactated Ringer's (Lactated Ringer's) 1,000 mls @ 150 mls/hr IV .Q6H40M ANDIE Ketorolac Tromethamine (Toradol) 15 mg IVP Q6 PRN PRN Reason: Pain, severe (8-10) Last Admin: 07/17/17 00:48 Dose: 15 mg Ondansetron HCl (Zofran Odt) 8 mg PO Q8H PRN PRN Reason: Nausea/Vomiting Last Admin: 07/17/17 02:21 Dose: 8 mg - Labs Labs: 07/16/17 18:27 07/16/17 18:27 - Constitutional Appears: Well, Non-toxic, No Acute Distress, Other (uncomfortable) - Respiratory Exam Respiratory Exam: Clear to Ausculation Bilateral, NORMAL BREATHING PATTERN - Cardiovascular Exam Cardiovascular Exam: REGULAR RHYTHM, +S1, +S2 - GI/Abdominal Exam GI & Abdominal Exam: Soft, Tenderness (diffuse abdominal tenderness. multiple surgical scars healed are noted). absent: Distended, Firm, Guarding, Rigid, Rebound - Neurological Exam Neurological Exam: Alert, Awake - Skin Skin Exam: Dry, Intact, Normal Color, Warm Assessment and Plan - Assessment and Plan (Free Text) Assessment: 47F with SBO [id number] Plan: - NPO, IBF - Pain control - await bowel function - serial abdominal exams Further recs discuss with Dr. Sandoval Lorenzo, PGY2
[2017-07-17 12:23] LABS: BLOOD UREA NITROGEN 20 mg/dl (7-17); CALCIUM 8.2 mg/dL (8.4-10.2); GFR AFRICAN-AMERICAN > 60; GFR NON-AFRICAN AMERICAN > 60
--- NOTE | 2017-07-17 13:40 | CP.PCM.HP ---
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 as per PT, pain was similar to previous obstruction. Pt was c/o of generalized abdominal pain, more to RUQ, gradually increasing from night EXECUTIVE CHEF, pain was moaning, severe intensity 10:10, associated to nausea, vomiting, non bloody, non bilious. Worsening symptom: CT Abd/Pelv showing SBO. Pt with previous scheduled for abdominal hernia repair and abdominoplastic at [facility], [place] in the [place] on 07/26/17. Aggravated factor: movements/ food. Pt denied: Fever, chills, CP, palpitations, dizziness, syncope, LOC, SOB, cough , urinary symptoms, sick contact, recent travel out of [facility]. Present on Admission - Present on Admission Any Indicators Present on Admission: No Review of Systems - Constitutional Constitutional: Other (negative) - EENT Eyes: Other (negative) Ears: Other (negative) Nose/Mouth/Throat: Other (negative) - Breasts Breasts: Other (negative) - Cardiovascular Cardiovascular: Other (negative) - Respiratory Respiratory: Other (negative) - Gastrointestinal Gastrointestinal: Abdominal Pain, Nausea, Vomiting - Genitourinary Genitourinary: Other (negative) - Musculoskeletal Musculoskeletal: Other (negative) - Integumentary Integumentary: Other (negative) - Neurological Neurological: Other (negative) - Psychiatric Psychiatric: Other (negative) - Endocrine Endocrine: Other (negative) - Hematologic/Lymphatic Hematologic: Other (negative) Past Patient History - Past Medical History & Family History Past Medical History?: Yes Pertinent Family History: Unknown - Past Social History Alcohol: None Drugs: Denies Home Situation {Lives}: With Family - CARDIAC Hx Cardiac Disorders: Yes Hx Hypercholesterolemia: Yes - PULMONARY Hx Respiratory Disorders: No - NEUROLOGICAL Hx Neurological Disorder: No Hx Alzheimer's Disease: No - HEENT Hx HEENT Problems: No - RENAL Hx Chronic Kidney Disease: No Hx Kidney Stones: Yes - ENDOCRINE/METABOLIC Hx Endocrine Disorders: Yes Hx Diabetes Mellitus Type 2: Yes - HEMATOLOGICAL/ONCOLOGICAL Hx Blood Disorders: No - INTEGUMENTARY Hx Dermatological Problems: No - MUSCULOSKELETAL/RHEUMATOLOGICAL Hx Musculoskeletal Disorders: No - GASTROINTESTINAL Hx Gastrointestinal Disorders: Yes Hx Bowel Surgery: Yes - GENITOURINARY/GYNECOLOGICAL Hx Genitourinary Disorders: No - PSYCHIATRIC Hx Psychophysiologic Disorder: No Hx Substance Use: No - SURGICAL HISTORY Hx Surgeries: Yes Hx Cholecystectomy: Yes - ANESTHESIA Hx Anesthesia: Yes Hx Anesthesia Reactions: No Meds Allergies/Adverse Reactions: Allergies Allergy/AdvReac Type Severity Reaction Status Date / Time No Known Allergies Allergy Verified 07/16/17 17:33 Physical Exam - Constitutional Appears: No Acute Distress - Head Exam Head Exam: NORMAL INSPECTION - Eye Exam Eye Exam: PERRL - ENT Exam ENT Exam: Normal Exam Additional comments: NG tube - Neck Exam Neck exam: Positive for: Normal Inspection - Respiratory Exam Respiratory Exam: NORMAL BREATHING PATTERN - Cardiovascular Exam Cardiovascular Exam: REGULAR RHYTHM - GI/Abdominal Exam GI & Abdominal Exam: Soft, Tenderness (epigastric) Additional comments: Multiple scars healed from previous surgery. - Extremities Exam Extremities exam: Positive for: normal inspection - Back Exam Back exam: NORMAL INSPECTION - Neurological Exam Neurological exam: Alert, Oriented x3 - Psychiatric Exam Psychiatric exam: Normal Affect, Normal Mood - Skin Skin Exam: Normal Color, Warm Results - Vital Signs Recent Vital Signs: Last Vital Signs Temp 98.7 F 07/17/17 09:00 Pulse 105 H 07/17/17 09:00 Resp 20 07/17/17 09:00 BP 104/69 07/17/17 09:00 Pulse Ox 94 L 07/17/17 09:00 reviewed Tg - Labs Result Diagrams: 07/19/17 05:30 07/19/17 05:30 Labs: Laboratory Results - last 24 hr 07/16/17 07/16/17 07/16/17 18:27 18:27 18:27 WBC 11.9 H D RBC 4.64 Hgb 12.9 Hct 38.2 MCV 82.4 MCH 27.7 MCHC 33.7 RDW 13.5 Plt Count 319 MPV 7.7 Neut % (Auto) 81.7 H Lymph % (Auto) 12.4 L [place] % (Auto) 4.9 Eos % (Auto) 0.8 Baso % (Auto) 0.2 Neut # (Auto) 9.7 H Lymph # (Auto) 1.5 [place] # (Auto) 0.6 Eos # (Auto) 0.1 Baso # (Auto) 0.0 Sodium 144 Potassium 3.6 Chloride 101 Carbon Dioxide 24 Anion Gap 23 H BUN 15 Creatinine 0.5 L Est GFR ( Amer) > 60 Est GFR (Non-Af Amer) > 60 Random Glucose 129 H Calcium 9.6 Total Bilirubin 1.0 AST 23 ALT 40 Alkaline Phosphatase 127 H D Total Protein 8.7 H Albumin 4.6 Globulin 4.1 H Albumin/Globulin Ratio 1.1 Lipase 103 Urine Color Yellow Urine Clarity Cloudy Urine pH 8.0 Ur Specific [place] 1.012 Urine Protein Negative Urine Glucose (UA) Neg Urine Ketones Negative Urine Blood Negative Urine Nitrate Negative Urine Bilirubin Negative Urine Urobilinogen 0.2-1.0 Ur Leukocyte Esterase Neg Urine RBC (Auto) 2 Urine Microscopic WBC 3 Ur Squamous Epith Cells 1 Amorphous Sediment Few H Urine Bacteria Rare Blood Type Antibody Screen BBK History Checked 07/16/17 07/17/17 07/17/17 18:27 11:30 11:30 WBC 2.9 L D RBC 4.54 Hgb 12.6 Hct 37.8 MCV 83.3 MCH 27.8 MCHC 33.4 RDW 13.5 Plt Count 309 MPV Neut % (Auto) Lymph % (Auto) [place] % (Auto) Eos % (Auto) Baso % (Auto) Neut # (Auto) Lymph # (Auto) [place] # (Auto) Eos # (Auto) Baso # (Auto) Sodium 144 Potassium 3.4 L Chloride 103 Carbon Dioxide 20 L Anion Gap 24 H BUN 20 H Creatinine 0.5 L Est GFR ( Amer) > 60 Est GFR (Non-Af Amer) > 60 Random Glucose 135 H Calcium 8.2 L Total Bilirubin AST ALT Alkaline Phosphatase Total Protein Albumin Globulin Albumin/Globulin Ratio Lipase Urine Color Urine Clarity Urine pH Ur Specific [place] Urine Protein Urine Glucose (UA) Urine Ketones Urine Blood Urine Nitrate Urine Bilirubin Urine Urobilinogen Ur Leukocyte Esterase Urine RBC (Auto) Urine Microscopic WBC Ur Squamous Epith Cells Amorphous Sediment Urine Bacteria Blood Type A POSITIVE Antibody Screen Negative BBK History Checked No verified bt reviewed J.P. - Imaging and Cardiology CT scan - abdomen Status: Report reviewed by me (MaricelP.) CT scan - pelvis Status: Report reviewed by me (MaricelP.) Assessment & Plan (1) Abdominal pain Status: Acute Priority: High (2) Small bowel obstruction Status: Acute Priority: High - Assessment and Plan (Free Text) Plan: Pt on NG tube , having multiple soft/liquid BM and passing gas with improvement in pain. F/U U C-S, continue Toradol, Dilaudid, Heparin and rest of Tx, Surgical consult appreciated. - Date & Time Date: 07/17/17 Time: 12:15
[2017-07-17] MEDS ORDERED: Potassium Chloride 20 mEq 100 ML IVPB SCH (14:00)
[2017-07-18] MEDS: Lactated Ringer's 1,000 ML IV SCH ×3 (00:23→07:44)
[2017-07-18 07:36] LABS: HEMOGLOBIN 11.7 g/dL (12.0-16.0); MEAN CELL VOLUME 82.3 fl (81.0-99.0); MEAN CORPUSCULAR HEMOGLOBIN 28.1 pg (27.0-31.0); MEAN CORPUSCULAR HGB CONC 34.2 g/dL (33.0-37.0); RBC 4.15 Mil/uL (3.80-5.20); RED CELL DISTRIBUTION WIDTH 13.5 % (11.5-14.5); WHITE BLOOD COUNT 5.3 K/uL (4.8-10.8)
[2017-07-18 07:49] LABS: ALBUMIN 3.4 g/dL (3.5-5.0); ALT/SGPT 58 U/L (9-52); AST/SGOT 34 U/L (14-36); BLOOD UREA NITROGEN 17 mg/dl (7-17); CALCIUM 8.7 mg/dL (8.4-10.2); GFR AFRICAN-AMERICAN > 60; GFR NON-AFRICAN AMERICAN > 60
[2017-07-18] MEDS ORDERED: Potassium Chloride 20 MEQ in Lactated Ringer's 1,000 ML IV SCH (08:45)
[2017-07-18] MEDS ORDERED: Potassium Chloride 20 mEq 100 ML IVPB SCH (09:00)
--- NOTE | 2017-07-18 09:13 | CP.PCM.PN ---
Subjective - Date & Time of Evaluation Date of Evaluation: 07/18/17 Time of Evaluation: 09:11 - Subjective Subjective: SURGERY NOTE FOR DR. ESCOBAR 47F seen and examined at bedside. Patient states pain is improving, denies nausea, vomiting, fevers and chills. She states he is passing melony and having mild diarrhea still. Objective - Vital Signs/Intake and Output Vital Signs (last 24 hours): Temp Pulse Resp BP Pulse Ox 98.5 F 85 20 106/65 97 07/18/17 09:07 07/18/17 09:07 07/18/17 09:07 07/18/17 09:07 07/18/17 09:07 Intake and Output: 07/18/17 07/18/17 06:59 18:59 Output Total 800 Balance -800 - Medications Medications: Current Medications Famotidine (Pepcid) 20 mg IVP DAILY [facility] Last Admin: 07/17/17 09:00 Dose: 20 mg Heparin Sodium (Porcine) (Heparin) 5,000 units SC Q8 ANDIE PRN Reason: Protocol Last Admin: 07/18/17 01:45 Dose: 5,000 units Hydromorphone HCl (Dilaudid) 1 mg IVP Q6 PRN PRN Reason: Pain, severe (8-10) Last Admin: 07/17/17 03:59 Dose: 1 mg Potassium Chloride (Potassium Chloride 20 Meq/100 Ml) 100 mls @ 50 mls/hr IVPB Q2 ANDIE Stop: 07/18/17 09:59 Potassium Chloride 20 meq/ (Lactated Ringer's) 1,010 mls @ 150 mls/hr IV .[id number] [facility] Potassium Chloride (Potassium Chloride 20 Meq/100 Ml) 50 mls @ 50 mls/hr IVPB ONCE ONE Stop: 07/18/17 10:14 Ketorolac Tromethamine (Toradol) 15 mg IVP Q6 PRN PRN Reason: Pain, severe (8-10) Last Admin: 07/17/17 00:48 Dose: 15 mg Ondansetron HCl (Zofran Odt) 8 mg PO Q8H PRN PRN Reason: Nausea/Vomiting Last Admin: 07/17/17 02:21 Dose: 8 mg - Labs Labs: 07/18/17 05:30 07/18/17 05:30 - Constitutional Appears: Well, Non-toxic, No Acute Distress - Respiratory Exam Respiratory Exam: Clear to Ausculation Bilateral, NORMAL BREATHING PATTERN - Cardiovascular Exam Cardiovascular Exam: REGULAR RHYTHM, +S1, +S2 - GI/Abdominal Exam GI & Abdominal Exam: Soft, Tenderness (periumbilical tenderness, mild). absent : Distended, Firm, Guarding, Rigid, Rebound Additional comments: NGT in place- 800cc - Neurological Exam Neurological Exam: Alert, Awake - Psychiatric Exam Psychiatric exam: Normal Affect, Normal Mood - Skin Skin Exam: Dry, Intact, Normal Color, Warm Assessment and Plan - Assessment and Plan (Free Text) Assessment: 47F with SBO, improving Plan: - Clamp NGT - Liquid diet - Continue to monitor for bowel function - NGT output Further recs discuss with Dr. Sandoval Lorenzo, PGY2
[2017-07-18] MEDS ORDERED: Potassium Chloride 20 mEq 50 ML IVPB ONE (09:15)
--- NOTE | 2017-07-18 12:18 | RAD ---
HISTORY: Followup SBO COMPARISON: Comparison made with CT scan abdomen pelvis 07/16/2017. FINDINGS: In situ NGT, tip of which overlies left upper quadrant of the abdomen. BOWEL: No evidence of acute mechanical bowel obstruction. No gross free intraperitoneal air. BONES: Mild dextroscoliosis possibly due to side bending of the upper torso to the left side. OTHER FINDINGS: None. Re- demonstrated are renal calcifications lower pole right kidney. Metallic clips right upper quadrant gliotic consistent with prior cholecystectomy. IMPRESSION: No evidence acute mechanical bowel obstruction. In situ NGT as above. Renal calculi lower pole right kidney.
--- NOTE | 2017-07-18 17:21 | CP.PCM.PN ---
Subjective - Date & Time of Evaluation Date of Evaluation: 07/18/17 Time of Evaluation: 09:30 - Subjective Subjective: F/U SBO Pt awake, no A/D, no n/v, NGT in place, continue with liquid stool. Ambulating earlier today with . Objective - Vital Signs/Intake and Output Vital Signs (last 24 hours): Temp Pulse Resp BP Pulse Ox 98.4 F 83 18 127/85 98 07/18/17 16:03 07/18/17 16:03 07/18/17 16:03 07/18/17 16:03 07/18/17 16:03 Intake and Output: 07/18/17 07/18/17 06:59 18:59 Output Total 800 Balance -800 - Medications Medications: Current Medications Famotidine (Pepcid) 20 mg IVP BID [facility] Heparin Sodium (Porcine) (Heparin) 5,000 units SC Q8 ANDIE PRN Reason: Protocol Last Admin: 07/18/17 10:35 Dose: 5,000 units Hydromorphone HCl (Dilaudid) 1 mg IVP Q6 PRN PRN Reason: Pain, severe (8-10) Last Admin: 07/17/17 03:59 Dose: 1 mg Potassium Chloride 20 meq/ (Lactated Ringer's) 1,010 mls @ 150 mls/hr IV .Q6H44M [facility] Potassium Chloride (Potassium Chloride 20 Meq/100 Ml) 100 mls @ 50 mls/hr IVPB Q2 ANDIE Stop: 07/18/17 19:59 Ketorolac Tromethamine (Toradol) 15 mg IVP Q6 PRN PRN Reason: Pain, severe (8-10) Last Admin: 07/17/17 00:48 Dose: 15 mg Ondansetron HCl (Zofran Odt) 8 mg PO Q8H PRN PRN Reason: Nausea/Vomiting Last Admin: 07/17/17 02:21 Dose: 8 mg - Labs Labs: 07/18/17 05:30 07/18/17 05:30 - Constitutional Appears: No Acute Distress - Head Exam Head Exam: NORMAL INSPECTION - Eye Exam Eye Exam: PERRL - ENT Exam ENT Exam: Normal Exam - Neck Exam Neck Exam: Normal Inspection - Respiratory Exam Respiratory Exam: NORMAL BREATHING PATTERN - Cardiovascular Exam Cardiovascular Exam: REGULAR RHYTHM - GI/Abdominal Exam GI & Abdominal Exam: Soft, Tenderness (epigastric) Additional comments: Multiple healed scars from previous surgery. NGT - Extremities Exam Extremities Exam: Normal Inspection - Back Exam Back Exam: NORMAL INSPECTION - Neurological Exam Neurological Exam: Alert, Oriented x3 - Psychiatric Exam Psychiatric exam: Normal Affect, Normal Mood - Skin Skin Exam: Normal Color, Warm Assessment and Plan (1) Abdominal pain Status: Acute (2) Small bowel obstruction Status: Acute - Assessment and Plan (Free Text) Plan: NGT drainage 800cc, monitor bowel function, continue run of Potassium, liquid diet and rest of Tx.
[2017-07-18] MEDS: Potassium Chloride 20 mEq 100 ML IVPB SCH (19:59)
[2017-07-18 23:16] LABS: SQUAMOUS EPITHIAL 1 /hpf (0-5); URINE BACTERIA RARE (<OCC); URINE BILIRUBIN NEGATIVE (NEGATIVE); URINE BLOOD MODERATE (NEGATIVE); URINE CLARITY SLIGHTY-CLOUDY (Clear); URINE COLOR YELLOW (YELLOW); URINE GLUCOSE (UA) NEG (Normal); URINE LEUKOCYTE ESTERASE NEG Leu/uL (Negative); URINE PROTEIN NEGATIVE (NEGATIVE); URINE UROBILINOGEN 0.2-1.0 mg/dL (0.2-1.0)
[2017-07-19] MEDS: Potassium Chloride 20 mEq 100 ML IVPB SCH (00:21)
[2017-07-19 07:36] LABS: HEMOGLOBIN 11.5 g/dL (12.0-16.0); MEAN CELL VOLUME 81.9 fl (81.0-99.0); MEAN CORPUSCULAR HEMOGLOBIN 27.7 pg (27.0-31.0); MEAN CORPUSCULAR HGB CONC 33.8 g/dL (33.0-37.0); RBC 4.16 Mil/uL (3.80-5.20); RED CELL DISTRIBUTION WIDTH 13.5 % (11.5-14.5); WHITE BLOOD COUNT 5.9 K/uL (4.8-10.8)
[2017-07-19 07:43] LABS: BLOOD UREA NITROGEN 11 mg/dl (7-17); CALCIUM 8.9 mg/dL (8.4-10.2); GFR AFRICAN-AMERICAN > 60; GFR NON-AFRICAN AMERICAN > 60
[2017-07-19] MEDS ORDERED: Potassium Chloride 20 mEq 100 ML IVPB ONE (08:30)
[2017-07-19] MEDS: Potassium Ch 20mEq in D5-1/2NS 1,000 ML IV SCH ×2 (10:25→22:00)
--- NOTE | 2017-07-19 16:36 | CP.PCM.PN ---
Subjective - Date & Time of Evaluation Date of Evaluation: 07/19/17 Time of Evaluation: 10:30 - Subjective Subjective: F/U SBO Pt ambulating well, on clear fluid, tolerating well. Objective - Vital Signs/Intake and Output Vital Signs (last 24 hours): Temp Pulse Resp BP Pulse Ox 99 F 114 H 18 119/82 94 L 07/19/17 16:09 07/19/17 16:09 07/19/17 16:09 07/19/17 16:09 07/19/17 16:09 Intake and Output: 07/19/17 07/19/17 06:59 18:59 Intake Total 1930 Output Total 300 Balance 1630 - Medications Medications: Current Medications Acyclovir (Zovirax 5% Oint) 1 applic EXT BID [facility] Famotidine (Pepcid) 20 mg IVP BID [facility] Last Admin: 07/19/17 08:20 Dose: 20 mg Heparin Sodium (Porcine) (Heparin) 5,000 units SC Q8 ANDIE PRN Reason: Protocol Last Admin: 07/19/17 10:24 Dose: Not Given Hydromorphone HCl (Dilaudid) 1 mg IVP Q6 PRN PRN Reason: Pain, severe (8-10) Last Admin: 07/17/17 03:59 Dose: 1 mg Potassium Chloride/Dextrose/Sod Cl (Potassium Chl 20 Meq In D5-1/2ns) 1,000 mls @ 75 mls/hr IV .[id number] [facility] Stop: 07/20/17 08:24 Last Admin: 07/19/17 10:25 Dose: 75 mls/hr Ketorolac Tromethamine (Toradol) 15 mg IVP Q6 PRN PRN Reason: Pain, severe (8-10) Last Admin: 07/17/17 00:48 Dose: 15 mg Ondansetron HCl (Zofran Odt) 8 mg PO Q8H PRN PRN Reason: Nausea/Vomiting Last Admin: 07/17/17 02:21 Dose: 8 mg - Labs Labs: 07/19/17 05:30 07/19/17 05:30 - Constitutional Appears: No Acute Distress - Head Exam Head Exam: NORMAL INSPECTION - Eye Exam Eye Exam: PERRL - ENT Exam ENT Exam: Normal Exam - Neck Exam Neck Exam: Normal Inspection - Respiratory Exam Respiratory Exam: Clear to Ausculation Bilateral - Cardiovascular Exam Cardiovascular Exam: REGULAR RHYTHM - GI/Abdominal Exam GI & Abdominal Exam: Distended (slightly), Soft, Normal Bowel Sounds Additional comments: NGT in place, drained 300 ml. - Neurological Exam Neurological Exam: Alert, Awake - Psychiatric Exam Psychiatric exam: Normal Affect, Normal Mood - Skin Skin Exam: Normal Color, Warm Assessment and Plan (1) Abdominal pain Status: Acute (2) Small bowel obstruction Status: Acute - Assessment and Plan (Free Text) Plan: Continue fluid liquid diet, continue Pepcid, Zofran, Potassium, Dilaudid PRN and rest of Tx.
[2017-07-19] MEDS: Acyclovir 5% OINT 5 APPLIC/5 GM EXT SCH (17:15)
--- NOTE | 2017-07-19 18:17 | CARD ---
APPROVED REPORT EKG Measurement Heart [id number] <Conclusion> Normal sinus rhythm Nonspecific T wave abnormality Abnormal ECG
--- NOTE | 2017-07-20 06:57 | CP.PCM.PN ---
Subjective - Date & Time of Evaluation Date of Evaluation: 07/20/17 Time of Evaluation: 06:55 - Subjective Subjective: General Surgery Progress note for Dr. Nick Patient was seen and examined this AM. She was out of bed folding cloths and walker around her room. She has tolerated liquid diet so far. She reports flatus and BM no nausea vomiting chest pain SOB or any other new or concerning symptoms. Objective - Vital Signs/Intake and Output Vital Signs (last 24 hours): Temp Pulse Resp BP Pulse Ox 98.1 F 75 20 119/81 98 07/20/17 00:20 07/20/17 00:20 07/20/17 00:20 07/20/17 00:20 07/20/17 00:20 Intake and Output: 07/19/17 07/20/17 18:59 06:59 Output Total 300 Balance -300 - Medications Medications: Current Medications Acyclovir (Zovirax 5% Oint) 1 applic EXT BID [facility] Last Admin: 07/19/17 17:15 Dose: 1 applic Famotidine (Pepcid) 20 mg IVP BID [facility] Last Admin: 07/19/17 22:10 Dose: 20 mg Heparin Sodium (Porcine) (Heparin) 5,000 units SC Q8 [facility] PRN Reason: Protocol Last Admin: 07/20/17 01:16 Dose: Not Given Hydromorphone HCl (Dilaudid) 1 mg IVP Q6 PRN PRN Reason: Pain, severe (8-10) Last Admin: 07/17/17 03:59 Dose: 1 mg Potassium Chloride/Dextrose/Sod Cl (Potassium Chl 20 Meq In D5-1/2ns) 1,000 mls @ 75 mls/hr IV .[id number] [facility] Stop: 07/20/17 08:24 Last Admin: 07/19/17 10:25 Dose: 75 mls/hr Ketorolac Tromethamine (Toradol) 15 mg IVP Q6 PRN PRN Reason: Pain, severe (8-10) Last Admin: 07/17/17 00:48 Dose: 15 mg Ondansetron HCl (Zofran Odt) 8 mg PO Q8H PRN PRN Reason: Nausea/Vomiting Last Admin: 07/17/17 02:21 Dose: 8 mg - Labs Labs: 07/19/17 05:30 07/19/17 05:30 Appears: Well, Non-toxic, No Acute Distress - Respiratory Exam Respiratory Exam: Clear to Ausculation Bilateral, NORMAL BREATHING PATTERN - Cardiovascular Exam Cardiovascular Exam: REGULAR RHYTHM, +S1, +S2 - GI/Abdominal Exam GI & Abdominal Exam: Soft absent: Tenderness, Distended, Firm, Guarding, Rigid, Rebound - Neurological Exam Neurological Exam: Alert, Awake - Psychiatric Exam Psychiatric exam: Normal Affect, Normal Mood - Skin Skin Exam: Dry, Intact, Normal Color, Warm Assessment and Plan - Assessment and Plan (Free Text) Assessment: 47F with SBO, improving Plan: - Soft Diet will followup tolerance - Continue to monitor for bowel function - D/W Dr. Sandoval Garza PGY2
[2017-07-20 07:54] LABS: BLOOD UREA NITROGEN 6 mg/dl (7-17); CALCIUM 9.1 mg/dL (8.4-10.2); GFR AFRICAN-AMERICAN > 60; GFR NON-AFRICAN AMERICAN > 60
[2017-07-20] MEDS: Acyclovir 5% OINT 5 APPLIC/5 GM EXT SCH ×2 (09:53→16:31)
--- NOTE | 2017-07-20 16:01 | CP.PCM.PN ---
Objective - Vital Signs/Intake and Output Vital Signs (last 24 hours): Temp Pulse Resp BP Pulse Ox 98.2 F 67 18 108/76 98 07/20/17 08:20 07/20/17 08:20 07/20/17 08:20 07/20/17 08:20 07/20/17 08:20 Intake and Output: 07/20/17 07/20/17 06:59 18:59 Output Total 300 Balance -300 - Medications Medications: Current Medications Acyclovir (Zovirax 5% Oint) 1 applic EXT BID [facility] Last Admin: 07/20/17 09:53 Dose: 1 applic Famotidine (Pepcid) 20 mg IVP BID [facility] Last Admin: 07/20/17 09:51 Dose: 20 mg Heparin Sodium (Porcine) (Heparin) 5,000 units SC Q8 [facility] PRN Reason: Protocol Last Admin: 07/20/17 09:49 Dose: 5,000 units Hydromorphone HCl (Dilaudid) 1 mg IVP Q6 PRN PRN Reason: Pain, severe (8-10) Last Admin: 07/17/17 03:59 Dose: 1 mg Ketorolac Tromethamine (Toradol) 15 mg IVP Q6 PRN PRN Reason: Pain, severe (8-10) Last Admin: 07/17/17 00:48 Dose: 15 mg Ondansetron HCl (Zofran Odt) 8 mg PO Q8H PRN PRN Reason: Nausea/Vomiting Last Admin: 07/17/17 02:21 Dose: 8 mg - Labs Labs: 07/19/17 05:30 07/20/17 05:05 Assessment and Plan (1) Abdominal pain Status: Acute (2) Small bowel obstruction Status: Acute
--- NOTE | 2017-07-21 07:40 | CP.PCM.PN ---
Subjective - Date & Time of Evaluation Date of Evaluation: 07/21/17 Time of Evaluation: 06:35 - Subjective Subjective: General Surgery Progress Note for Dr. Nick Patient seen and examined at bedside. No acute event overnight. Patient denies pain. She is having flatus and BMs. She is tolerating regular diet. Denies fever /chills and nausea/vomiting. Patient has no complaints at this time. Objective - Vital Signs/Intake and Output Vital Signs (last 24 hours): Temp Pulse Resp BP Pulse Ox 98.1 F 75 20 118/78 99 07/21/17 00:31 07/21/17 00:31 07/21/17 00:31 07/21/17 00:31 07/21/17 00:31 Intake and Output: 07/21/17 07/21/17 06:59 18:59 Intake Total 200 Balance 200 - Medications Medications: Current Medications Acyclovir (Zovirax 5% Oint) 1 applic EXT BID [facility] Last Admin: 07/20/17 16:31 Dose: 1 applic Famotidine (Pepcid) 20 mg IVP BID [facility] Last Admin: 07/20/17 17:03 Dose: 20 mg Heparin Sodium (Porcine) (Heparin) 5,000 units SC Q8 ANDIE PRN Reason: Protocol Last Admin: 07/21/17 01:19 Dose: 5,000 units Hydromorphone HCl (Dilaudid) 1 mg IVP Q6 PRN PRN Reason: Pain, severe (8-10) Last Admin: 07/17/17 03:59 Dose: 1 mg Ketorolac Tromethamine (Toradol) 15 mg IVP Q6 PRN PRN Reason: Pain, severe (8-10) Last Admin: 07/17/17 00:48 Dose: 15 mg Ondansetron HCl (Zofran Odt) 8 mg PO Q8H PRN PRN Reason: Nausea/Vomiting Last Admin: 07/17/17 02:21 Dose: 8 mg - Labs Labs: 07/19/17 05:30 07/20/17 05:05 - Constitutional Appears: No Acute Distress - Head Exam Head Exam: ATRAUMATIC, NORMOCEPHALIC - Eye Exam Eye Exam: Normal appearance - ENT Exam ENT Exam: Mucous Membranes Moist - Respiratory Exam Respiratory Exam: NORMAL BREATHING PATTERN - Cardiovascular Exam Cardiovascular Exam: REGULAR RHYTHM - GI/Abdominal Exam GI & Abdominal Exam: Soft, Normal Bowel Sounds. absent: Distended, Firm, Guarding, Tenderness, Rebound - Neurological Exam Neurological Exam: Alert, Awake, Oriented x3 - Psychiatric Exam Psychiatric exam: Normal Affect, Normal Mood - Skin Skin Exam: Dry, Intact, Normal Color, Warm Assessment and Plan - Assessment and Plan (Free Text) Assessment: 47 F presents with SBO, now resolved -Tolerating regular diet -Patient clinically improved -Patient clear for discharge from surgical standpoint -No surgical intervention needed at this time -Will discuss with Dr. Sandoval Casiano PGY1
[2017-07-21] MEDS: Acyclovir 5% OINT 5 APPLIC/5 GM EXT SCH (09:42)
[2017-07-21 15:37] VITALS: BP 119/81; PULSE 76; RESP 20; TEMP 98.3; O2SAT 96
--- NOTE | 2017-07-21 16:04 | CP.PCM.PN ---
Objective - Vital Signs/Intake and Output Vital Signs (last 24 hours): Temp Pulse Resp BP Pulse Ox 98.3 F 76 20 119/81 96 07/21/17 15:37 07/21/17 15:37 07/21/17 15:37 07/21/17 15:37 07/21/17 15:37 Intake and Output: 07/21/17 07/21/17 06:59 18:59 Intake Total 200 Balance 200 - Medications Medications: Current Medications Acyclovir (Zovirax 5% Oint) 1 applic EXT BID [facility] Last Admin: 07/21/17 09:42 Dose: 1 applic Famotidine (Pepcid) 20 mg IVP BID [facility] Last Admin: 07/20/17 17:03 Dose: 20 mg Heparin Sodium (Porcine) (Heparin) 5,000 units SC Q8 [facility] PRN Reason: Protocol Last Admin: 07/21/17 09:43 Dose: 5,000 units Ketorolac Tromethamine (Toradol) 15 mg IVP Q6 PRN PRN Reason: Pain, severe (8-10) Last Admin: 07/17/17 00:48 Dose: 15 mg Ondansetron HCl (Zofran Odt) 8 mg PO Q8H PRN PRN Reason: Nausea/Vomiting Last Admin: 07/17/17 02:21 Dose: 8 mg - Labs Labs: 07/19/17 05:30 07/20/17 05:05 Assessment and Plan (1) Abdominal pain Status: Acute (2) Small bowel obstruction Status: Acute
--- NOTE | 2017-07-21 16:12 | CP.PCM.DIS ---
Provider - Provider Date of Admission: 07/16/17 21:31 Attending physician: Garrick Santo MD Diagnosis - Discharge Diagnosis (1) Abdominal pain Status: Acute Priority: High (2) Small bowel obstruction Status: Acute Priority: High Hospital Course - Lab Results Lab Results: Micro Results 07/16/17 18:27 Blood Blood Culture - Preliminary NO GROWTH AFTER 4 DAYS 07/18/17 04:28 Urine,Clean Catch Urine Culture - Final <10,000 CFU/ML. MULTIPLE SPECIES. PROBABLE CONTAMINATION. 07/16/17 18:27 Urine Urine Culture - Final 10-50,000 CFU/ML. MULTIPLE SPECIES. PROBABLE CONTAMINATION. Most Recent Lab Values WBC 5.9 K/uL (4.8-10.8) 07/19/17 05:30 RBC 4.16 Mil/uL (3.80-5.20) 07/19/17 05:30 Hgb 11.5 g/dL (12.0-16.0) L 07/19/17 05:30 Hct 34.1 % (34.0-47.0) 07/19/17 05:30 MCV 81.9 fl (81.0-99.0) 07/19/17 05:30 MCH 27.7 pg (27.0-31.0) 07/19/17 05:30 MCHC 33.8 g/dL (33.0-37.0) 07/19/17 05:30 RDW 13.5 % (11.5-14.5) 07/19/17 05:30 Plt Count 265 K/uL (130-400) 07/19/17 05:30 MPV 7.7 fl (7.2-11.7) 07/16/17 18:27 Neut % (Auto) 81.7 % (50.0-75.0) H 07/16/17 18: Lymph % (Auto) 12.4 % (20.0-40.0) L 07/16/17 18: [place] % (Auto) 4.9 % (0.0-10.0) 07/16/17 18:27 Eos % (Auto) 0.8 % (0.0-4.0) 07/16/17 18:27 Baso % (Auto) 0.2 % (0.0-2.0) 07/16/17 18:27 Neut # (Auto) 9.7 K/uL (1.8-7.0) H 07/16/17 18:27 Lymph # (Auto) 1.5 K/uL (1.0-4.3) 07/16/17 18:27 Alexander # (Auto) 0.6 K/uL (0.0-0.8) 07/16/17 18:27 Eos # (Auto) 0.1 K/uL (0.0-0.7) 07/16/17 18: Baso # (Auto) 0.0 K/uL (0.0-0.2) 07/16/17 18:27 Sodium 141 mmol/l (132-148) 07/20/17 05:05 Potassium 4.0 MMOL/L (3.6-5.0) 07/20/17 05:05 Chloride 102 mmol/L (98-107) 07/20/17 05:05 Carbon Dioxide 23 mmol/L (22-30) 07/20/17 05:05 Anion Gap 20 (10-20) 07/20/17 05:05 BUN 6 mg/dl (7-17) L 07/20/17 05:05 Creatinine 0.6 mg/dl (0.7-1.2) L 07/20/17 05:05 Est GFR ( Amer) > 60 07/20/17 05:05 Est GFR (Non-Af Amer) > 60 07/20/17 05:05 Random Glucose 148 mg/dL (65-105) H 07/20/17 05:05 Calcium 9.1 mg/dL (8.4-10.2) 07/20/17 05:05 Phosphorus 2.1 mg/dl (2.5-4.5) L 07/19/17 05:30 Magnesium 1.8 MG/DL (1.6-2.3) 07/19/17 05:30 Total Bilirubin 0.9 mg/dl (0.2-1.3) 07/18/17 05:30 AST 34 U/L (14-36) 07/18/17 05:30 ALT 58 U/L (9-52) H D 07/18/17 05:30 Alkaline Phosphatase 75 U/L (38-126) 07/18/17 05:30 Total Protein 6.8 G/DL (6.3-8.2) 07/18/17 05:30 Albumin 3.4 g/dL (3.5-5.0) L D 07/18/17 05:30 Globulin 3.4 gm/dL (2.2-3.9) 07/18/17 05:30 Albumin/Globulin Ratio 1.0 (1.0-2.1) 07/18/17 05:30 Lipase 103 U/L (23-300) 07/16/17 18:27 Urine Color Yellow (YELLOW) 07/18/17 22:57 Urine Clarity Slighty-cloudy (Clear) 07/18/17 22:57 Urine pH 6.0 (5.0-8.0) 07/18/17 22:57 Ur Specific [place] 1.019 (1.003-1.030) 07/18/17 22:57 Urine Protein Negative mg/dL (NEGATIVE) 07/18/17 22:57 Urine Glucose (UA) Neg mg/dL (Normal) 07/18/17 22:57 Urine Ketones 80 mg/dL (NEGATIVE) 07/18/17 22:57 Urine Blood Moderate (NEGATIVE) 07/18/17 22:57 Urine Nitrate Negative (NEGATIVE) 07/18/17 22:57 Urine Bilirubin Negative (NEGATIVE) 07/18/17 22:57 Urine Urobilinogen 0.2-1.0 mg/dL (0.2-1.0) 07/18/17 22:57 Ur Leukocyte Esterase Neg Ki/uL (Negative) 07/18/17 22:57 Urine RBC (Auto) 5 /hpf (0-3) H 07/18/17 22:57 Urine Microscopic WBC 7 /hpf (0-5) H 07/18/17 22:57 Ur Squamous Epith Cells 1 /hpf (0-5) 07/18/17 22:57 Amorphous Sediment Few /ul (<OCC) H 07/16/17 18:27 Urine Bacteria Rare (<OCC) 07/18/17 22:57 Blood Type A POSITIVE 07/16/17 18:27 Antibody Screen Negative 07/16/17 18:27 BBK History Checked No verified bt 07/16/17 18:27 Discharge Exam - Head Exam Head Exam: ATRAUMATIC, NORMOCEPHALIC Discharge Plan - Follow Up Plan Condition: FAIR Disposition: HOME/ ROUTINE Instructions: Small Bowel Obstruction (DC) Additional Instructions: follow up with your primary MD Kerrie Koehler Referrals: Stefanie Nick MD [Staff Provider] -
== END 2017-07-21 16:50 | disposition home or self-care (01) | DRG 181 ==
LOC: H.ER 17:28 → H.ERHOLD 21:31 → H.MEDSURG1 07-17 00:26
PROVIDERS: ADMIT Internal Medicine Pulmonary Disease; ATTEND Internal Medicine Pulmonary Disease
DX: K56.609 Unspecified intestinal obstruction, unspecified as to partial versus complete obstruction (principal); E11.9 Type 2 diabetes mellitus without complications; E78.5 Hyperlipidemia, unspecified; E78.00 Pure hypercholesterolemia, unspecified; Z87.442 Personal history of urinary calculi; Z90.49 Acquired absence of other specified parts of digestive tract